=== PATIENT | male | born 1960 ===

== ENCOUNTER → 2020-06-25 15:24 | Outpatient (BNVA) | payer OTHER, SELFPAY | PROVIDERS: PCP Internal Medicine; Visit Provider Surgery | DX: Z76.89 Persons encountering health services in other specified circumstances (principal) ==

== ENCOUNTER 2021-01-13 11:22 | Emergency (ER) | payer OTHER, SELFPAY ==
--- NOTE | 2021-01-13 | ECG_ITS ---
Test Reason : AFIB Blood Pressure : / mmHG Vent. Rate : 153 BPM Atrial Rate : 153 BPM P-R Int : 000 ms QRS Dur : 072 ms QT Int : 288 ms P-R-T Axes : 000 -04 008 degrees QTc Int : 459 ms Atrial fibrillation with rapid ventricular response Abnormal ECG When compared with ECG of 09-NOV-2017 14:33, Rhythm change Referred By: Generic ED Physician Electronically Signed By:WENDY MENDEZ
--- NOTE | ~2021-01-13 | XR_ITS ---
EXAMINATION: XR CHEST CLINICAL INFORMATION: Dyspnea COMPARISON: None TECHNIQUE: Frontal view of the chest was obtained. FINDINGS: Cardiac silhouette is normal in size. The lungs are well aerated. There is no lobar consolidation. No pleural effusion or pneumothorax. No gross acute osseous abnormality. XR/XR chest 1V IMPRESSION: No acute pulmonary pathology.
[2021-01-13 11:29] VITALS: BP 106/82; PULSE 80; RESP 16; TEMP 36.6; O2SAT 96; BMI 26.4
--- NOTE | 2021-01-13 11:39 | ED_ITS ---
HPI - Chest Pain General Chief Complaint: Chest Pain Stated Complaint: CHEST PAIN Time Seen by Provider: 01/13/21 11:39 Source: patient Mode of arrival: ambulatory Limitations: no limitations History of Present Illness MD complaint: chest discomfort and other (dyspnea, palpitations) Pertinent past history: other (brother has ?afib) Onset (ago): day(s) (last night) Timing of current episode: constant Prior episodes: No Onset: during rest Pain location: substernal Pain radiation: none Severity: mild Quality: dull Relieving factors: nothing Exacerbating factors: nothing Context: other (did not drink ETOH this weekend, he did work on his house) Associated symptoms: dyspnea and palpitations Treatment prior to arrival: none Related Data Home Medications Medication Instructions Recorded Confirmed No Known Home Meds 06/12/20 06/25/20 Allergies Allergy/AdvReac Type Severity Reaction Status Date / Time penicillin G Allergy Unknown hives Verified 06/25/20 15:41 Penicillins [PCN] Allergy Unknown HIVES Verified 06/25/20 15:41 Review of Systems Review of Systems: Constitutional : No Fever, No Chills ENT/Mouth : No sore throat, No Rhinorrhea, No Swallowing Difficulty Eyes: No Eye Pain, No Swelling, No Redness Cardiovascular : pos Chest Pain, positive SOB, No Orthopnea, no Edema, pos palpitations Respiratory : No Cough, No Sputum, No Wheezing, positive dyspnea Gastrointestinal : No Nausea, No Vomiting, No Diarrhea, No abdominal Pain, No Hematochezia, No Melena Genitourinary : No Dysuria, No Urinary Frequency, No Hematuria Musculoskeletal : No joint pain, No Myalgias Skin : No Skin Lesions, No rash Neuro : No Weakness, No Numbness, No Dizziness, No Headache Psych : No Anxiety/Panic, No Depression Heme/Lymph: No Bruising, No Lymphadenopathy Endocrine : No Polyuria, No Polydipsia All other systems reviewed and are negative [facility] Past Medical History Attestation statement: The following information was validated with the patient. Medical History Annual physical exam Hernia Surgical History S/P appendectomy Family History Family History Father No problems noted. Mother No problems noted. 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 Oriented X3. No acute distress. Eyes: Pupils equal, round and reactive to light. ENT: Pharynx normal. Neck: Normal inspection. Neck supple. CVS: tachycardic and irregular heart rate and rhythm. Pulses normal. Respiratory: No respiratory distress. Breath sounds normal. Abdomen: Soft and nontender. Skin: Skin warm and dry. Normal skin color. Normal skin turgor. Extremities: No lower extremity edema. No calf ttp Neuro: Oriented X 3. No motor deficit. No sensory deficit. Course Course Course Narrative: converted to NSR - chadsvasc2 score is 0 at this time would start on aspirin currently his BP is on the lower end HR in 60s NSR patient has been in NSR post one dose of IV diilt, did walk around ED asymptomatic remains in NSR his HR is in 60s and BP lower 100s will hold off any bb or ccb at this time he has 0 chadsvasc score - will instruct him to use aspirin and follow up with cardiology the patient's brother also has afib after calling him and confirming, bnp elevated due to afib and not CHF MDM - Chest Pain MDM Narrative Medical decision making narrative: 60 yo male with no sig PMH though does not go to the doctor comes in with c/o feeling short of breath, palpitations and chest discomfort since last night - tele monitor shows afib with RVR, at this time labs, troponin, ddimer, CXR, IV dilt for rate control, dispo per results and if the patient converts as he has only been in afib for the past 12 hours Lab Data Result diagrams: 01/13/21 12:00 01/13/21 12:00 Labs: Lab Results 01/13/21 01/13/21 01/13/21 Range/Units 12:00 12:00 12:00 WBC 8.3 (4.8-10.8) X10*3/uL RBC 5.87 H (4.60-5.80) X10*6/uL Hgb 16.4 (14.0-18.0) g/dl Hct 49.2 (42-52) % MCV 83.8 (80-98) fL MCH 27.9 (27.0-33.0) pg MCHC 33.3 (31.0-36.0) g/dl RDW 12.7 (11.0-16.0) % Plt Count 221 (160-400) X10*3/uL MPV 11.6 (9.4-12.4) fL Immature Gran % (Auto) 0.6 H (0.0-0.4) % Neut % (Auto) 67.1 (45-73) % Lymph % (Auto) 18.8 L (20-40) % Hendricks % (Auto) 8.1 (2-11) % Eos % (Auto) 4.9 H (0-4) % Baso % (Auto) 0.5 (0-2) % Lymph # (Auto) 1.6 (1.2-4.9) X10*3/uL Hendricks # (Auto) 0.7 (0.1-1.2) X10*3/uL Eos # (Auto) 0.4 (0.0-0.4) X10*3/uL Baso # (Auto) 0.0 (0.0-0.2) X10*3/uL Abs Immat Gran (auto) 0.05 H (0.00-0.03) X10*3/uL Absolute Neuts (auto) 5.6 (2.0-8.3) X10*3/uL Absolute Nucleated RBC 0.000 (0.0-0.012) X10*3/uL Nucleated RBC % (auto) 0.0 (0.0-0.2) /100WBC PT 11.7 (9.9-13.0) SEC INR 1.0 (0.9-1.1) APTT 36.5 (24.1-38.0) SEC D-Dimer < 200 NG/ML Sodium 140 (135-145) mmol/L Potassium 4.3 (3.3-5.1) mmol/L Chloride 108 (96-108) mmol/L Carbon Dioxide 21 L (22-29) mmol/L Anion Gap 15 (12-20) BUN 15 (9-16) mg/dL Creatinine 0.86 (0.5-1.4) mg/dL Estim Creat Clear Calc 99.7 Estimated GFR > 60 Random Glucose 82 (60-115) mg/dL Calcium 9.2 (8.4-10.2) mg/dL Magnesium 2.0 (1.6-2.6) mg/dL Total Bilirubin 0.9 (0.0-1.0) mg/dL Direct Bilirubin 0.3 (0.0-0.5) mg/dL AST 20 (5-37) U/L ALT 20 (0-40) U/L Alkaline Phosphatase 83 (39-117) U/L Troponin I High Sens (<3.5-35.0) ng/L B-Natriuretic Peptide (<100) pg/mL Total Protein 6.4 L (6.5-8.0) g/dL Albumin 4.0 (3.5-5.0) g/dL Lipase 16 (8-78) U/L TSH (0.32-4.0) uIU/mL Ethyl Alcohol mg/dL 01/13/21 01/13/21 01/13/21 Range/Units 12:00 12:00 12:00 WBC (4.8-10.8) X10*3/uL RBC (4.60-5.80) X10*6/uL Hgb (14.0-18.0) g/dl Hct (42-52) % MCV (80-98) fL MCH (27.0-33.0) pg MCHC (31.0-36.0) g/dl RDW (11.0-16.0) % Plt Count (160-400) X10*3/uL MPV (9.4-12.4) fL Immature Gran % (Auto) (0.0-0.4) % Neut % (Auto) (45-73) % Lymph % (Auto) (20-40) % Hendricks % (Auto) (2-11) % Eos % (Auto) (0-4) % Baso % (Auto) (0-2) % Lymph # (Auto) (1.2-4.9) X10*3/uL Hendricks # (Auto) (0.1-1.2) X10*3/uL Eos # (Auto) (0.0-0.4) X10*3/uL Baso # (Auto) (0.0-0.2) X10*3/uL Abs Immat Gran (auto) (0.00-0.03) X10*3/uL Absolute Neuts (auto) (2.0-8.3) X10*3/uL Absolute Nucleated RBC (0.0-0.012) X10*3/uL Nucleated RBC % (auto) (0.0-0.2) /100WBC PT (9.9-13.0) SEC INR (0.9-1.1) APTT (24.1-38.0) SEC D-Dimer NG/ML Sodium (135-145) mmol/L Potassium (3.3-5.1) mmol/L Chloride (96-108) mmol/L Carbon Dioxide (22-29) mmol/L Anion Gap (12-20) BUN (9-16) mg/dL Creatinine (0.5-1.4) mg/dL Estim Creat Clear Calc Estimated GFR Random Glucose (60-115) mg/dL Calcium (8.4-10.2) mg/dL Magnesium (1.6-2.6) mg/dL Total Bilirubin (0.0-1.0) mg/dL Direct Bilirubin (0.0-0.5) mg/dL AST (5-37) U/L ALT (0-40) U/L Alkaline Phosphatase (39-117) U/L Troponin I High Sens 6.6 (<3.5-35.0) ng/L B-Natriuretic Peptide 350 H (<100) pg/mL Total Protein (6.5-8.0) g/dL Albumin (3.5-5.0) g/dL Lipase (8-78) U/L TSH 2.31 (0.32-4.0) uIU/mL Ethyl Alcohol < 10 mg/dL ECG Data ECG #1: Attestation: I personally reviewed and interpreted this ECG as follows: ECG interpretation date: 01/13/21 ECG interpretation time: 11:52 Interpretation: Rate: 150s Rhythm: afib with RVR [place]: normal Normal QRS complex. ST T wave : no BALDO, non specific qTC: normal prior studies: change from prior The study has been interpreted contemporaneously by me. EKG#2 Rate: 66 Rhythm: NSR [place]: left Normal P waves (inverted) Normal KRISTINE. Normal QRS complex. poor R wave progression ST T wave : normal no BALDO qTC: normal prior studies: no acute ischemia The study has been interpreted contemporaneously by me. . Discharge Plan Discharge Clinical Impression: Atrial fibrillation with rapid ventricular response Patient Disposition: Home, Self-Care Instructions: A-fib (Atrial Fibrillation) (ED) Additional Instructions: return to ED for any worsening symptoms or concerns TAKE BABY ASPIRIN 81MG DAILY Prescriptions: No Action No Known Home Meds RF: 0 Referrals: Pam Santos MD [Primary Care Provider] - 2 days Enrike Oconnell MD [Physician] - 1 week Stand Alone Forms: Work/School Release Interventions: ED Discharge Assessment Last Done: 01/13/21 14:25 Discharge Date/Time: 01/13/21 14:26
[2021-01-13 12:00] VITALS: PULSE 144
[2021-01-13 12:04] VITALS: BP 225/167; PULSE 144
[2021-01-13] MEDS: dilTIAZem HCL 50 MG/10 ML VIAL 10 MG IVPUSH (12:04)
[2021-01-13 12:07] VITALS: BP 180/88; PULSE 96; RESP 15; O2SAT 94
[2021-01-13 12:09] LABS: MANUAL DIFF FLAG NO
[2021-01-13 12:10] LABS: Basophils Percent Auto 0.5 % (0-2); Eosinophils Absolute Auto 0.4 X10*3/uL (0.0-0.4); Eosinophils Percent Auto 4.9 % (0-4); Hematocrit 49.2 % (42-52); Hemoglobin 16.4 g/dl (14.0-18.0); Imm Gran Abs Auto 0.05 X10*3/uL (0.00-0.03); Imm Gran Pct Auto 0.6 % (0.0-0.4); Lymphocytes Absolute Auto 1.6 X10*3/uL (1.2-4.9); Lymphocytes Percent Auto 18.8 % (20-40); Mean Corpuscular HGB Conc 33.3 g/dl (31.0-36.0); Mean Corpuscular Hemoglobin 27.9 pg (27.0-33.0); Mean Corpuscular Volume 83.8 fL (80-98); Mean Platelet Volume 11.6 fL (9.4-12.4); Monocytes Absolute Auto 0.7 X10*3/uL (0.1-1.2); Monocytes Percent Auto 8.1 % (2-11); Neutrophils Absolute Auto 5.6 X10*3/uL (2.0-8.3); Neutrophils Percent Auto 67.1 % (45-73); Platelet Count 221 X10*3/uL (160-400); Red Blood Count 5.87 X10*6/uL (4.60-5.80); Red Cell Distribution Width 12.7 % (11.0-16.0); White Blood Count 8.3 X10*3/uL (4.8-10.8)
[2021-01-13 12:17] LABS: Prothrombin Time 11.7 SEC (9.9-13.0)
[2021-01-13 12:20] LABS: Partial Thromboplastin Time 36.5 SEC (24.1-38.0)
[2021-01-13 12:21] LABS: D Dimer < 200 NG/ML
[2021-01-13] MEDS: 0.9 % Sodium Chloride 500 ML IV (12:27)
--- NOTE | 2021-01-13 12:27 | PC.NURSE ---
Pt given iV cardizem. HR from 130s to 90s pt reports feeling much better . BP stable and trending down at this time.
[2021-01-13 12:30] LABS: Ethanol < 10 mg/dL
[2021-01-13 12:35] LABS: Alanine Aminotransferase 20 U/L (0-40); Alkaline Phosphatase 83 U/L (39-117); Anion Gap 15 (12-20); Aspartate Amino Transferase 20 U/L (5-37); Bilirubin Direct 0.3 mg/dL (0.0-0.5); Bilirubin Total 0.9 mg/dL (0.0-1.0); Blood Urea Nitrogen 15 mg/dL (9-16); Calcium 9.2 mg/dL (8.4-10.2); Carbon Dioxide 21 mmol/L (22-29); Chloride 108 mmol/L (96-108); Creatinine Clr Calc Pharmacy 99.7; Estimated Glomerular Filt Rate > 60; Glucose Random 82 mg/dL (60-115); Lipase 16 U/L (8-78); Potassium 4.3 mmol/L (3.3-5.1); Sodium 140 mmol/L (135-145); Total Protein 6.4 g/dL (6.5-8.0)
--- NOTE | 2021-01-13 12:37 | PC.NURSE ---
Pt removed reading glasses for exam as he states that they are to be used for up close reading only. He states that his right eye is slightly more blurry than normal at this time.
[2021-01-13 12:38] LABS: B Type Natriuretic Peptide 350 pg/mL (<100); Troponin-I High Sensitivity 6.6 ng/L (<3.5-35.0)
--- NOTE | 2021-01-13 12:53 | ECG_ITS ---
Test Reason : AFIB Blood Pressure : / mmHG Vent. Rate : 066 BPM Atrial Rate : 066 BPM P-R Int : 172 ms QRS Dur : 082 ms QT Int : 374 ms P-R-T Axes : 000 -27 007 degrees QTc Int : 392 ms Normal sinus rhythm Possible Inferior infarct , age undetermined Abnormal ECG When compared with ECG of 13-JAN-2021 11:47, Sinus rhythm has replaced Atrial fibrillation Vent. rate has decreased BY 87 BPM Borderline criteria for Inferior infarct are now Present Referred By: Stephy Gonzalez Electronically Signed By:WENDY MENDEZ
[2021-01-13 12:55] LABS: TSH reflex Free T4 2.31 uIU/mL (0.32-4.0)
[2021-01-13 13:08] VITALS: PULSE 66
--- NOTE | 2021-01-13 13:08 | PC.NURSE ---
Rhythm change noted, EKG obtained and MD notified.
--- NOTE | 2021-01-13 13:53 | PC.NURSE ---
Pt ambulated around entire ED. He remains in SR at this time. aware.
== END 2021-01-13 14:26 | disposition home or self-care (01) ==
PROVIDERS: Emergency Provider Emergency Medicine; PCP Internal Medicine
DX: I48.91 Unspecified atrial fibrillation (principal)
CPT/HCPCS: 36415; 71045; 80048; 80076; 82077; 83690; 83735; 83880; 84443; 84484; 85025; 85379; 85610; 85730; 93005; 96361; 96374; 99284

== ENCOUNTER → 2021-03-07 13:01 | Outpatient (REF) | payer OTHER, SELFPAY ==
--- NOTE | 2021-03-07 13:03 | CA_ITS ---
Transthoracic Echocardiogram Patient (Last, First, Middle): Benoit Dailey J Gender: Male Date of : 1960 Age: 60 Procedure Date: 03/07/2021 Procedure Type: Transthoracic Echocardiogram Location: OP Height: 180.34 cm Weight: 83.92 kg BSA: 2.04 m2 Heart Rate: bpm BP: 122 / 70 mmHg Alarm Installation Technician: Referring MD: Pam Santos MD Symptoms: I48.91 - Unspecified atrial fibrillation Study Quality: Good ECG Rhythm: Sinus Conclusions: - Normal left ventricular size and systolic function. - Normal right ventricular cavity size and systolic function. - The left atrium is moderately dilated. - There is mild dilatation of the ascending aorta. Findings Left Ventricle Normal left ventricular size and systolic function. There is mildly increased left ventricular wall thickness. The visually estimated ejection fraction is between 55-60%. There is no evidence of regional wall motion abnormalities. Diastolic function is normal for age. Right Ventricle Normal right ventricular cavity size and systolic function. Atria The left atrium is moderately dilated. Aortic Valve Normal aortic valve structure and function. There is no aortic valve stenosis. There is no aortic valve regurgitation. Mitral Valve Normal mitral valve structure and function. There is no mitral valve regurgitation. There is no mitral valve stenosis. Pulmonic Valve Normal pulmonic valve structure and function. There is trace pulmonic valve regurgitation. Tricuspid Valve Normal tricuspid valve structure. There is trace tricuspid valve regurgitation. Normal right atrial pressure. There is no evidence of pulmonary hypertension. Great Vessels There is mild dilatation of the ascending aorta. The visualized portions of the pulmonary artery and branches are normal. Venous The inferior vena cava is normal in size and collapses greater than 50% with inspiration. Pericardium/Pleural There is no evidence of pericardial effusion. Prior Study Comparison No prior study available for comparison. Measurements 2D Linear Measurements IVSd: 1.15 0.6-0.9/0.6-1.0 cm LVIDd: 4.56 3.9-5.3/4.2-5.9 cm LVIDd Index: 2.24 2.4-3.2/2.2-3.1 cm/m2 LVIDs: 2.79 2.0-3.6 cm LVPWd: 1.05 0.7-1.1 cm Ao Root: 3.40 2.1-3.5 cm LA Diam: 4.50 2.7-3.8/3.0-4.0 cm LAIDs Index: 2.21 1.5-2.3 cm/m2 LV Mass: 222.66 67-162/88-224 g LV Mass Index: 109.15 43-95/49-115 g/m2 LVOT Diam: 2.40 3.0+(-)1.3 cm Mitral Valve MV Pk E: 0.87 MV PK A: 0.72 MV Decel Time: 243.00 E/A: 1.20 E'Lateral: 13.10 E'Medial: 8.92 E/E' Med: 9.80 E/E' Lat: 6.60 PHT: 71.00 MVA PHT: 3.10 Decel [place]: 3.58 Aortic Valve AoV Pk [place]: 1.76 AoV Mn [place]: 1.05 AoV VTI: 0.37 AoV Pk Grad: 12.00 Aov Mn Grad: 5.00 NEISHA Cont.VTI: 3.72 LVOT LVOT Pk [place]: 1.52 LVOT Mn [place]: 1.09 LVOT VTI: 0.30 LVOT Pk Grad: 9.00 LVOT Mn Grad: 5.00 LVOT Diam: 2.40 LVOT Area: 4.52 Diastolic Function MV Pk E: 0.87 MV Pk A: 0.72 E/A: 1.20 E'Medial: 8.92 E/E' Med: 9.80 E' Laterial: 13.10 E/E' Lat: 6.60 Tricuspid Valve TR Pk [place]: 2.05 TR Pk Grad: 17.00 RA Press: 3.00 RVSP: 20.00 Great Vessels Aorta Ao Root-2D: 3.40 2.0-3.7 cm Ao Asc: 4.10 2.1-3.4 cm Pulmonary Valve PV Pk [place]: 1.29 Peak PV Grad: 7.00 Updated in Other Vendor System with Status of Final Uriel Landaverde MD electronically signed on 03/08/2021 5:35:05 PM with status of Final
--- NOTE | 2021-03-07 13:03 | ECG_ITS ---
Hook-up date: 2021-03-07 13:55:00 Duration: 47:59:00 Test Indications: AFIB Medications: 119271 QRS complexes 30 Ventricular ectopics which represent <1 % of total QRS comp. 704 Supraventricular ectopics which represent <1 % of total QRS comp. * Paced QRS complexs which represent % of total QRS comp. VENTRICULAR ECTOPY 26 Isolated 0 Bigeminal Cycles 0 Couplets 1 Runs 4 Beats in Runs 4 Beats LONGEST at 187 BPM at 03:58:51 2021-03-09 4 Beats FASTEST at 187 BPM at 03:58:51 2021-03-09 SUPRAVENTRICULAR ECTOPY 601 Isolated 36 Couplets 8 Runs 31 Beats in Runs 6 Beats LONGEST at 150 BPM at 21:22:36 2021-03-07 3 Beats FASTEST at 154 BPM at 04:35:06 2021-03-09 HEART RATES 39 MIN at 05:11:21 2021-03-09 68 AVG 119 MAX at 14:55:01 2021-03-08 LONGEST RR 1.8320 secs at 05:21:35 2021-03-08 S-T LEVELS Channel 1 - 128 mm at 13:55:00 2021-03-07 - 128 mm at 13:55:00 2021-03-07 Channel 2 - 128 mm at 13:55:00 2021-03-07 - 128 mm at 13:55:00 2021-03-07 Channel 3 - 128 mm at 03:31:41 -- - 128 mm at 03:31:41 Underlying rhythm is sinus; Average ventricular rate 68/min; range 39-119/min; Rare PACs with few short runs, longest 6 beats; Rare PVCs; Patient did not report any symptoms in the diary Referred By: Pam Santos Overread By: WENDY MENDEZ
== END ==
LOC: HO.CARD 13:01
PROVIDERS: Visit Provider Internal Medicine
DX: I48.91 Unspecified atrial fibrillation (principal)
CPT/HCPCS: 93225; 93226; 93306

== ENCOUNTER → 2021-03-13 15:25 | Outpatient (BNVA) | payer OTHER, SELFPAY | PROVIDERS: PCP Internal Medicine; Referring Provider Internal Medicine; Visit Provider Internal Medicine Cardiovascular Disease | DX: I48.0 Paroxysmal atrial fibrillation (principal) | CPT/HCPCS: 93005 ==

== ENCOUNTER → 2021-03-19 16:00 | Outpatient (BNVA) | payer OTHER, SELFPAY | PROVIDERS: PCP Internal Medicine; Referring Provider Internal Medicine; Visit Provider Surgery ==

== ENCOUNTER 2021-05-05 11:49 | Outpatient (REF) | payer OTHER, SELFPAY ==
[2021-05-05 11:54] VITALS: BMI 26.2
[2021-05-05 11:55] VITALS: BP 145/62; PULSE 73; RESP 16; TEMP 36.8; O2SAT 98
[2021-05-05 12:33] VITALS: BP 140/84; PULSE 73; RESP 16; O2SAT 97
--- NOTE | 2021-05-07 10:43 | P.OP_ITS ---
Operative Note Operative Note Date of Service: 05/05/21 Narrative: Preop diagnosis: Subcutaneous mass on the back Postop diagnosis: Epidermal inclusion cyst, on the back Procedure: Excision of epidermal inclusion cyst from the back under local anesthesia Surgeon: Bebeto Vizcaino MD The patient is a 61-year-old male with a large cystic mass on the back measuring about 3.8 cm. He understood the technique of excision under local anesthesia. He was aware of the risks, benefits, and alternatives. He was brought to the minor procedure room and placed in prone position. The area of the cystic induration on the upper back was prepped and draped. Lidocaine 1% was used for local anesthesia. I made an elliptical incision in the skin overlying this mass using blade 15. This carried down through the full- thickness of the skin and subcutaneous fat. I then proceeded to continue to sharply dissect the subcutaneous fat around this cyst. This appeared to have a capsule and I included the entire capsule with excision. I used the Metzenbaum scissors as well periodically until the entire cystic induration was completely excised and sent as specimen. I closed the incision with full-thickness nylon 2-0 interrupted sutures. Dressings were applied The patient tolerated the procedure well. There were no complications noted. He was given wound care instructions. I will see him in the office in 2 weeks to remove the sutures.
== END 2021-05-05 11:50 | disposition home or self-care (01) ==
LOC: HO.MS 11:49
PROVIDERS: PCP Internal Medicine; Visit Provider Surgery
PROC: (CPT 11404; principal; 2021-05-05 12:00)
DX: L72.0 Epidermal cyst (principal)
CPT/HCPCS: 11404; 88304

== ENCOUNTER → 2021-05-19 14:54 | Outpatient (BNVA) | payer OTHER, SELFPAY | PROVIDERS: PCP Internal Medicine; Referring Provider Internal Medicine; Visit Provider Surgery ==

== ENCOUNTER → 2021-10-02 15:20 | Outpatient (BNVA) | payer OTHER, SELFPAY | PROVIDERS: PCP Internal Medicine; Referring Provider Internal Medicine; Visit Provider Internal Medicine Cardiovascular Disease | DX: I48.0 Paroxysmal atrial fibrillation (principal); R06.00 Dyspnea, unspecified | CPT/HCPCS: 93005 ==

== ENCOUNTER → 2021-11-03 08:48 | Outpatient (REF) | payer OTHER, SELFPAY ==
--- NOTE | 2021-11-03 08:51 | CA_ITS ---
Acquisition Time: 2021-11-03 09:17:46 Total Exercise Time: 00:10:10 Test Indications: Abnormal ECG Medications: NONE Protocol: TAQUERIA Max HR: 141 BPM 87% of Pred: 161 BPM Max BP: 142/082 mmHG Max Work Load: 12.0 METS Exercise stress test with exercise 10 min 10 sec of Taqueria protocol, achieving 86% MPHR, 12 METs, without anginal symptoms, with isolated PACs and one 3 beat NSVT at start of stage 4, with normotensive response to exercise, without EKG changes meeting criteria for ischemia, in early recovery some tracings show borderline ST change in leads III- nonspecific. Test reviewed with Dr Vasquez Referred By: Uriel Landaverde Overread By: MARIAJOSE MILLER
== END ==
LOC: HO.CARD 08:48
PROVIDERS: PCP Internal Medicine; Visit Provider Internal Medicine Cardiovascular Disease
DX: R06.00 Dyspnea, unspecified (principal)
CPT/HCPCS: 93017

== ENCOUNTER → 2021-12-31 14:16 | Outpatient (BNVA) | payer OTHER, SELFPAY | PROVIDERS: PCP Internal Medicine; Referring Provider Internal Medicine; Visit Provider Nurse Practitioner Family | DX: I48.0 Paroxysmal atrial fibrillation (principal) | CPT/HCPCS: 93005 ==

== ENCOUNTER → 2022-10-19 13:37 | Outpatient (BNVA) | payer OTHER, SELFPAY | PROVIDERS: PCP Internal Medicine; Referring Provider Internal Medicine; Visit Provider Internal Medicine Cardiovascular Disease | DX: I48.0 Paroxysmal atrial fibrillation (principal); R06.00 Dyspnea, unspecified; K40.90 Unilateral inguinal hernia, without obstruction or gangrene, not specified as recurrent | CPT/HCPCS: 93005 ==

== ENCOUNTER 2022-12-04 06:49 | Day surgery (SDC) | payer OTHER, SELFPAY ==
[2022-12-01 14:56] VITALS: BMI 28.0
--- NOTE | 2022-12-03 09:56 | HO.ANESPROP2 ---
HPI - Anesthesia Eval Consult details Narrative: 62yo M for Left Hernia Repair Inguinalw/mesh Cardiac optimized Afib - No anticoag, prn flecinide PMFSH Active Problems Active Problems: All Active Problems (Updated 10/19/22 @ 16:17 by Bebeto Vizcaino MD) Left inguinal hernia (Acute) WYMAN (dyspnea on exertion) (Acute) Colonoscopy refused (Acute) Cataract (Acute) Subcutaneous mass of back (Acute) Afib (Acute) Annual physical exam (Acute) Past Medical History Medical History Afib Annual physical exam Subcutaneous mass of back Family History Family History Father No problems noted. Mother No problems noted. Surgical History Surgical History History of cataract surgery History of excision of mass (~2020) History of left inguinal hernia repair (~12/04/22) S/P appendectomy Social History Social History Household Members: Spouse Housing: House Are you a primary body care manager to a significant other at home: No Do you presently have visiting nurse or other home services: No Alcohol intake: current Alcohol intake frequency: a few times a month Alcohol type: beer Patient Tobacco Use Status: Never used Tobacco e-Cigarette/Vaping Use: Never Used Second Hand Smoke Exposure: No Current occupational status: employed 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 Max HR: 141 BPM? 87% of? Pred: 161 BPM Max BP: 142/082 mmHG Max Work Load: 12.0 METS ? Exercise stress test with exercise 10 min 10 sec of [place]qu[place] protocol, achieving ?86% MPHR, 12 METs, without anginal symptoms, with isolated PACs and one 3 beat ?NSVT at start of stage 4, with normotensive response to exercise, without EKG ?changes meeting criteria for ischemia, in early recovery some tracings show ?borderline ST change in leads III- nonspecific. Test reviewed with Dr Ross ECHO 02/2021 Conclusions: - Normal left ventricular size and systolic function.? - Normal right ventricular cavity size and systolic function.? ? - The left atrium is moderately dilated. ? - There is mild dilatation of the ascending aorta.? Assessment and Plan Assessment Anesthesia Assessment: Chart Reviewed
[2022-12-04] VITALS (11 sets, daily range): BP systolic 97–139; BP diastolic 63–85; PULSE 49–63; RESP 16–18; TEMP 36.1–36.4; O2SAT 95–96; BMI 28.0
--- NOTE | 2022-12-04 07:25 | P.CONAN_ITS ---
[facility] Active Problems Active Problems: All Active Problems (Updated 10/19/22 @ 16:17 by Bebeto Vizcaino MD) Left inguinal hernia (Acute) WYMAN (dyspnea on exertion) (Acute) Colonoscopy refused (Acute) Cataract (Acute) Subcutaneous mass of back (Acute) Afib (Acute) Annual physical exam (Acute) Past Medical History Medical History Afib Annual physical exam Subcutaneous mass of back Functional capacity: independent ambulation Family History Family History Father No problems noted. Mother No problems noted. 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 Cognitive needs: No Hearing needs: No Vision needs: Yes Meds Allergies Allergy/AdvReac Type Severity Reaction Status Date / Time Penicillins [PCN] Allergy Unknown HIVES Verified 10/19/22 16:02 Active Medications: Current Medications Lactated Ringer's (Lr) 1,000 mls @ 100 mls/hr IVCONT .Q10H KODI Cefazolin Sodium/Dextrose (Ancef) 2 gm in 50 mls @ 100 mls/hr IV PREOP ONE Stop: 12/04/22 07:46 Home Medications Medication Instructions Recorded Confirmed Last Taken Type No Known Home Meds 07/09/22 12/01/22 Unknown History Exam Exam Date and Time: December 04, 2022 0725 Height,Weight and Vital Signs: Height 5 ft 11 in Weight 91.172 kg Airway Mallampati Class: III TM Dist: >3cm Neck ROM: Full Heart: RRR Lungs: CTA Assessment and Plan Final Anesthetic Review ASA Class: II Final Preanesthetic Review: Meds/Allgs Chart Reviewed, Consent Obtained/Reviewed and Anes Risks/Benef Reviewed Patient Risk: Intermediate Procedure Risk: Low Anesthetic Plan Anesthetic Plan: GA Disposition: Standard PACU
--- NOTE | 2022-12-04 07:47 | HO.ANESPROP2 ---
[facility] Active Problems Active Problems: All Active Problems (Updated 10/19/22 @ 16:17 by Bebeto Vizcaino MD) Left inguinal hernia (Acute) WYMAN (dyspnea on exertion) (Acute) Colonoscopy refused (Acute) Cataract (Acute) Subcutaneous mass of back (Acute) Afib (Acute) Annual physical exam (Acute) Past Medical History Medical History Afib Annual physical exam Subcutaneous mass of back Functional capacity: independent ambulation Family History Family History Father No problems noted. Mother No problems noted. Surgical History Surgical History History of cataract surgery History of excision of mass (~2020) S/P appendectomy History of Problems with Anesthesia: No Social History Social History Household Members: Spouse Housing: House Are you a primary career specialist to a significant other at home: No Do you presently have visiting nurse or other home services: No Alcohol intake: current Alcohol intake frequency: a few times a month Alcohol type: beer Patient Tobacco Use Status: Never used Tobacco e-Cigarette/Vaping Use: Never Used Second Hand Smoke Exposure: No Current occupational status: employed 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 Cognitive needs: No Hearing needs: No Vision needs: Yes Meds Allergies Allergy/AdvReac Type Severity Reaction Status Date / Time Penicillins [PCN] Allergy Unknown HIVES Verified 10/19/22 16:02 Active Medications: Current Medications Lactated Ringer's (Lr) 1,000 mls @ 100 mls/hr IVCONT .Q10H [facility] Home Medications Medication Instructions Recorded Confirmed Last Taken Type No Known Home Meds 07/09/22 12/01/22 Unknown History Exam Exam Date and Time: December 04, 2022 0747 Height,Weight and Vital Signs: Height 5 ft 11 in Weight 91.1 kg Last Vital Signs Temp 97.1 F 12/04/22 07:37 Pulse 63 12/04/22 07:37 Resp 18 12/04/22 07:37 BP 139/79 12/04/22 07:37 Pulse Ox 95 12/04/22 07:37 O2 Del Method Room Air 12/04/22 07:37 Airway Mallampati Class: III TM Dist: >3cm Neck ROM: Full Heart: RRR Lungs: CTA Assessment and Plan Final Anesthetic Review History of Problems with Anesthesia: No ASA Class: II Final Preanesthetic Review: Meds/Allgs Chart Reviewed, Consent Obtained/Reviewed and Anes Risks/Benef Reviewed Patient Risk: Intermediate Procedure Risk: Low Anesthetic Plan Anesthetic Plan: GA Disposition: Standard PACU
--- NOTE | 2022-12-04 08:10 | MHC.SHP ---
Pre-Procedural Eval Section A Date of Service: 12/04/22 Section B Chief Complaint: Unilateral inguinal hernia, without obstruction Details of Present Illness: Has a mass on the left groin consistent with a hernia Relevant Family History (Specify if Yes): No Relevant Social History: None Present Medications: see Short Stay Collaborative assessment Medical History: Significant History ( atrial fibrill) History of Previous Operations: Relevant previous surgery/procedure and date(s) Allergies: Allergies Allergy/AdvReac Type Severity Reaction Status Date / Time Penicillins [PCN] Allergy Unknown HIVES Verified 10/19/22 16:02 Review of Systems Sugical H&P ROS: Negative: Constitution, Cardiovascular, Respiratory, Neurological, Psychiatric, Hem-Onc, Allergic/Immunologic, Gastrointestinal, Genitourinary, Musculoskeletal, Integumentary, Endocrine and Eyes/Ears/Nose/Throat Exam Surgical H&P Exam: Normal: HEENT, Normal: Heart, Normal: Lungs, Normal: Extremities, Normal: Skin and Normal: Neurological and Significant Findings: Abdomen ( left inguinal hernia, large, partially reducible) Plan Diagnosis/Plan: Unchanged I have reviewed the history and physical and performed a pertinent physical examination on my patient. No changes have occurred unless specified. Time Spent With Patient Time: Total time managing care of this patient today ____ minutes.
--- NOTE | 2022-12-04 09:29 | P.OP_ITS ---
Operative Note Operative Note Date of Service: 12/04/22 Narrative: Preop diagnosis: large left inguinal hernia, chronically incarcerated Postop diagnosis: large left inguinal hernia, chronically incarcerated, indirect Procedure: Repair of a large chronically incarcerated left inguinal hernia, with mesh Surgeon: Bebeto Vizcaino MD computer lab assistant: KORIN Shields the patient is a 62-year-old male, with note of a large left inguinal hernia. This appears to be chronically incarcerated. In view of discomfort, he wanted to proceed with repair. He understood the technique of the procedure. He was aware of the risks, benefits, and alternatives. Brought to the operating room. He was placed supine under general anesthesia via laryngeal mask airway. The left groin was prepped and draped in the usual sterile fashion. A surgical time-out was done. The patient received cefazolin 2 g IV preoperatively. I made a generous incision on the skin overlying this hernia along an imaginary line from the left anterior superior except spine to the pubic ramus using blade 15. This carried down with electrocautery through the full-thickness of the skin subcutaneous fat. Is is noted that patient has a thick amount of subcutaneous fat as well. The then encountered a large hernia protruding through the external ring. I opened up the of the inguinal canal by make an incision on the external oblique min neurosis using a blade 15. And extending this inferomedially to connect with the external ring using an open tip pair of scissors. Status were applied on the divided edges of the aponeurosis. I then proceeded to do blood dissection of the spermatic cord and its contents using my index finger until I was able to pass Doni drain around this. This Doni drain was used for traction. I was able to identify the vas deferens and a combining vessels. There was note of a large lipoma very adherent to the spermatic cord. There was note of a very large the sac, which contained fat. Had to gently separate this from the rest of the cord contents. This was then reduced to a large internal ring. I used a large-sized block to reinforce the internal ring. This plug was secured with Prolene 2 sutures to shelving edge of the inguinal meant the, the internal oblique superiorly and medially using the inner leaves of the plug. I then used a he will mesh to reinforce the floor of the canal. The tails of the mesh was passed around the cord at the level of turn a week and secured together with Prolene 2 sutures. I secured the mesh to the floor of the canal and flattened this. This was secured to the shelving edge of the inguinal and laterally, and the anterior neural oblique superiorly medially, as well as the pubic ramus inferomedially using the inner leaves of using Prolene 2 sutures. We observed for hemostasis. Once hemostasis was confirmed, we irrigated. The vas deferens and the accompanying vessels were protected throughout the procedure I then closed the external oblique aponeurosis using a continuous running Polysorb 2-0 stitch to re-create the external ring We then reapposed the thick subcutaneous layer with dex Polysorb 3-0 interrupted sutures. Skin closure was achieved with pollicis of 4-0 subcuticular running rodriguez tures. Area was infiltrated with Marcaine 0.5% for postop analgesia. Dressings were applied. The procedure was completed The patient tolerated procedure well. There were no immediate complications. Initial final counts of sponges and instruments were correct. Estimated blood loss was about 25 cc. The patient extubated without difficulty and transferred to the recovery room with stable vital signs.
[2022-12-04] MEDS: Acetaminophen 1,000 MG/100 ML PIGGYBACK 400 MG IV (10:11)
[2022-12-04] MEDS: fentaNYL citrate/PF 100 MCG/2 ML VIAL 25 MCG IVPUSH ×2 (10:13→10:40)
[2022-12-04] MEDS: oxyCODONE HCl Immed Release 5 MG TABLET PO (10:17)
--- NOTE | 2022-12-04 10:21 | HO.POSTANES ---
Post Anesthesia Evaluation Post Anesthesia Evaluation Date of Service: 12/04/22 Vital Signs: Vital Signs Temp Pulse Resp BP Pulse Ox O2 Del Method 12/04/22 09:50 51 16 123/73 95 Room Air 12/04/22 10:13 49 L 18 133/73 96 Room Air 12/04/22 10:13 18 12/04/22 09:58 50 16 127/74 95 Room Air 12/04/22 09:45 53 16 97/63 96 Room Air 12/04/22 09:43 97.6 F 61 16 118/67 95 Room Air 12/04/22 07:37 97.1 F 63 18 139/79 95 Room Air Anesthesia: General LMA Mental Status: Awake Pain Control: Satisfactory Nausea/Vomiting: None Hydration: Adequate Anesthesia-Related Issues: No Anes. Related Issues
== END 2022-12-04 11:50 | disposition home or self-care (01) ==
PROVIDERS: PCP Internal Medicine; Visit Provider Surgery
PROC: (CPT 49507; principal; 2022-12-04 08:30)
DX: K40.30 Unilateral inguinal hernia, with obstruction, without gangrene, not specified as recurrent (principal); D17.6 Benign lipomatous neoplasm of spermatic cord; I48.91 Unspecified atrial fibrillation; Z88.0 Allergy status to penicillin; Z90.49 Acquired absence of other specified parts of digestive tract
CPT/HCPCS: 49507; C1781; J0131; J0690; J1100; J1885; J2250; J2405; J2795; J3010

== ENCOUNTER → 2022-12-17 10:39 | Outpatient (BNVA) | payer OTHER, SELFPAY | PROVIDERS: PCP Internal Medicine; Visit Provider Surgery ==

== ENCOUNTER → 2023-01-11 09:51 | Outpatient (BNVA) | payer OTHER, SELFPAY | PROVIDERS: PCP Internal Medicine; Visit Provider Surgery ==

== ENCOUNTER 2023-03-22 08:43 | Emergency (ER) | payer OTHER, SELFPAY ==
[2023-03-22 08:45] VITALS: BP 110/59; PULSE 130; RESP 20; TEMP 36.8; O2SAT 98; BMI 27.9
--- NOTE | 2023-03-22 08:49 | ECG_ITS ---
Test Reason : afib Blood Pressure : / mmHG Vent. Rate : 139 BPM Atrial Rate : 000 BPM P-R Int : 000 ms QRS Dur : 080 ms QT Int : 276 ms P-R-T Axes : 000 -20 -20 degrees QTc Int : 419 ms Atrial fibrillation with rapid ventricular response Low voltage QRS Cannot rule out Anterior infarct , age undetermined Abnormal ECG When compared with ECG of 13-JAN-2021 12:53, Atrial fibrillation has replaced Sinus rhythm Vent. rate has increased BY 73 BPM Referred By: Generic ED Physician Electronically Signed By:GILMA ROMAN
[2023-03-22 09:11] LABS: MANUAL DIFF FLAG NO
--- NOTE | 2023-03-22 09:12 | ED_ITS ---
HPI - Arrhythmia/Palpitations General Chief Complaint: Arrhythmia/Palpitations Stated Complaint: afib Time Seen by Provider: 03/22/23 09:11 Source: patient, RN notes reviewed and old records reviewed Mode of arrival: ambulatory History of Present Illness HPI narrative: 63-year-old male with a past medical history of proximal AFib not on anticoagulation, presenting to the ED complaining of palpitations/feeling anxious since last night around 21:00. Denies currently taking any daily medications. Admits when last saw cardiology was taken off ASA, does not take rate control medications. Reports mild exertional dyspnea. Denies chest pain, SOB at rest, cough, pedal edema, history of clots, lightheadedness/dizziness complaint: palpitations Related Data Previous Rx's Medication Instructions Recorded metoprolol succinate 25 mg 25 mg PO DAILY 30 days #30 tabs 03/22/23 tablet,extended release 24 hr (Toprol XL) Allergies Allergy/AdvReac Type Severity Reaction Status Date / Time Penicillins [PCN] Allergy Unknown HIVES Verified 01/11/23 09:56 Review of Systems 2 Review of Systems: Constitutional: No Fever, No Chills, No Fatigue, No Malaise ENT/Mouth: No Hearing loss, No Ear Pain, No sore throat, No Rhinorrhea, No Swallowing Difficulty Eyes: No Eye Pain, No Swelling, No Redness, Cardiovascular: No Chest Pain, No SOB, +Dyspnea on Exertion, No Orthopnea, No Edema, No Palpitations Respiratory: No Cough, No Sputum, No Dyspnea Gastrointestinal: No Nausea, No Vomiting, No Diarrhea, No Constipation, No Abdominal pain Musculoskeletal: No joint pain, No Myalgias, No Joint Swelling Skin: No Skin Lesions, No rash Neuro: No Weakness, No Numbness, No Paresthesias, No Loss of Consciousness, No Dizziness, No Headache Psych: + Anxiety Yes all other systems are reviewed and are negative Constitutional: Constitutional: Reports as per HPI [facility] Past Medical History Attestation statement: The following information was validated with the patient. Source: old records reviewed Medical History Afib Annual physical exam Subcutaneous mass of back Surgical History History of cataract surgery History of excision of mass (~2020) History of left inguinal hernia repair (~12/04/22) S/P appendectomy Family History Family History Father No problems noted. Mother No problems noted. 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 Cognitive needs: No Hearing needs: No Vision needs: Yes Physical Exam 2 Vital Signs: Vital Signs: Last Vital Signs Temp 97.8 F 03/22/23 10:57 Pulse 70 03/22/23 15:19 Resp 17 03/22/23 15:19 BP 97/68 03/22/23 15:19 Pulse Ox 95 03/22/23 15:19 O2 Del Method Room Air 03/22/23 15:19 BMI result Body Mass Index 27.9 Const: General: cooperative, healthy appearing, no acute distress, alert and awake Orientation/consciousness: patient oriented x3 Limitations: no limitations HEENT: Head: Yes normal to inspection and Yes atraumatic Ears: hearing grossly normal bilaterally General nose exam: Normal external nose present Face and sinus: Yes normal facial exam Eyes: General: appearance normal, both eyes and all related structures EOM: EOMs intact bilaterally Neck: Neck: Yes normal visual inspection and Yes no meningeal signs Resp: Effort & Inspection: normal respiratory effort and no respiratory distress Auscultation: clear to auscultation bilaterally, no crackles and no wheezes Cardio: Rate: tachycardic Rhythm: abnormal rhythm Heart sounds: S1 normal heart sound present and S2 normal heart sound present GI: Inspection: Yes normal to inspection Palpation (GI): Soft to palpation, nontender, no guarding and not rigid Skin: Rashes: no rashes Wounds: no wounds Neuro: General: patient oriented x3, tone normal and no meningeal signs C ranial nerves: Yes CN's II-XII intact bilaterally Gait exam (Neuro): Normal gait present Extrem: General: Yes normal to inspection, Yes no pedal edema and Yes no calf tenderness Course Course Course Narrative: -labs reassuring, initial troponin negative. BNP 161. COVID-19 negative -1100--HR improved to 106 after 10 mg of IV diltiazem, remains in AFib >> will give additional 10 mg of IV diltiazem due to soft BP XR chest 1V IMPRESSION: No acute pulmonary pathology. -case discussed with Cardiology, Dr. Vasquez who recommended 300 mg of Flecainide -1500--patient converted to normal sinus rhythm at a rate of 67. Repeat EKG with a QTC of 395, NSR, low-voltage QRS. No STEMI. >> will continue to monitor -1557--BP 118/80, heart rate 73 > re-consulted Cardiology who recommended Toprol xl 25mg daily starting tomorrow and they will arrange appointment Results discussed with patient including worrisome signs and symptoms and strict return precautions, and when to return to the emergency department. They verbalized understanding and feel safe for discharge at this time. Medications Administered Discontinued Medications Generic Name Dose Route Start Last Admin Trade Name Freq PRN Reason Stop Dose Admin Diltiazem HCl 10 mg 03/22/23 09:21 03/22/23 09:46 Diltiazem Hcl 50 Mg/10 Ml Vial IVPUSH 03/22/23 09:22 10 mg STAT STA Administration Diltiazem HCl 10 mg 03/22/23 11:00 03/22/23 11:57 Diltiazem Hcl 50 Mg/10 Ml Vial IVPUSH 03/22/23 11:01 10 mg STAT STA Administration Flecainide Acetate 300 mg 03/22/23 12:07 03/22/23 13:32 Flecainide Acetate 50 Mg Tablet PO 03/22/23 12:08 300 mg ONCE ONE Administration Medical Decision Making Medical Decision Making MDM Narrative: 63-year-old male with a past medical history of proximal AFib not on anticoagulation, presenting to the ED complaining of palpitations/feeling anxious since last night around 21:00. On exam tachycardic, monitor showing AFib with RVR at a rate of 130s, NAD, lungs CTA. Concern for proximal AFib. Rule out metabolic/infectious etiologies including ACS. Low suspicion for PE/DVT. Plan: EKG, labs, CXR, IV diltiazem, re-evaluate [id number] Score = 0 Please refer to course for remaining clinical decision making, interpretation of labs/imaging results, and discussions with consultants and/or family members. Differential Diagnosis Differential Diagnoses: The differential diagnosis associated with the presentation includes As above Admission/Observation Consideration of admission/observation: Escalation of care including admission/observation considered Lab Data MDM Lab Attestation statement: I reviewed the patient's lab results. 03/22/23 09:07 03/22/23 09:07 Labs: Lab Results 03/22/23 03/22/23 03/22/23 Range/Units 09:07 09:32 11:56 WBC 6.7 (4.8-10.8) X10*3/uL RBC 5.86 H (4.60-5.80) X10*6/uL Hgb 15.9 (14.0-18.0) g/dl Hct 48.5 (42.0-52.0) % MCV 82.8 (80.0-98.0) fL MCH 27.1 (27.0-33.0) pg MCHC 32.8 (31.0-36.0) g/dl RDW 12.8 (11.0-16.0) % Plt Count 209 (160-400) X10*3/uL MPV 11.5 (9.4-12.4) fL Immature Gran % (Auto) 0.6 H (0.0-0.4) % Neut % (Auto) 65.1 (45-73) % Lymph % (Auto) 22.4 (20-40) % [place] % (Auto) 7.9 (2-11) % Eos % (Auto) 3.3 (0-4) % Baso % (Auto) 0.7 (0-2) % Lymph # (Auto) 1.5 (1.2-4.9) X10*3/uL [place] # (Auto) 0.5 (0.1-1.2) X10*3/uL Eos # (Auto) 0.2 (0.0-0.4) X10*3/uL Baso # (Auto) 0.1 (0.0-0.2) X10*3/uL Abs Immat Gran (auto) 0.04 H (0.00-0.03) X10*3/uL Absolute Neuts (auto) 4.4 (2.0-8.3) x10*3/uL Absolute Nucleated RBC 0.000 (0.0-0.012) X10*3/uL Nucleated RBC % (auto) 0.0 (0.0-0.2) /100WBC PT 11.5 (11.1-13.3) SEC INR 0.9 (0.9-1.1) Sodium 142 (135-145) mmol/L Potassium 4.4 (3.3-5.1) mmol/L Chloride 111 H (96-108) mmol/L Carbon Dioxide 23 (22-29) mmol/L Anion Gap 12 (12-20) BUN 10 (9-16) mg/dL Creatinine 0.85 (0.5-1.4) mg/dL Estim Creat Clear Calc 105.1 Estimated GFR > 60 Random Glucose 101 (60-115) mg/dL Calcium 9.2 (8.4-10.2) mg/dL Magnesium 2.1 (1.6-2.6) mg/dL Total Bilirubin 0.7 (0.0-1.0) mg/dL AST 18 (5-37) U/L ALT 14 (0-40) U/L Alkaline Phosphatase 79 (39-117) U/L Troponin I High Sens < 2.7 < 2.7 (<3.5-35.0) ng/L B-Natriuretic Peptide 161 H (<100) pg/mL Total Protein 6.7 (6.5-8.0) g/dL Albumin 4.0 (3.5-5.0) g/dL COVID-19 (PRABHJOT) Negative (Negative) COVID-19 Clin Com See Note Independent Interpretation I performed an independent interpretation of an: EKG (At a rate of 139. QTC 419. No STEMI. When compared to prior AFib has replaced sinus rhythm ) Radiology Impression Discussion of test interpretation with radiology: I have reviewed the radiologist's reading. Independent Historian Clinical information obtained from an independent historian. History obtained from or confirmed by: Spouse External Record Review External record reviewed: Inpatient record, Office record, Outpatient record, Prior outpatient labs, Prior outpatient radiology, Primary care record and Outside ED record Tests considered The following testing was considered but not selected: As above Prescription Management I considered prescription management with: Other Chronic Conditions Patient?s care impacted by: Other (A.fib) Critical Care Time Critical Care Time Critical Care Time: Yes Total Critical Care Time: 60 Attestation: I have personally provided critical care time exclusive of time spent on separately billable procedures. Time includes review of lab data, radiology results, discussion with consultants, and monitoring for potential decompensation. Intervention performed as documented. Discharge Plan Discharge Clinical Impression: Atrial fibrillation with rapid ventricular response Patient Disposition: Home, Self-Care Instructions: A-fib (Atrial Fibrillation) (DC) Additional Instructions: You had AVR with rapid heart rate today, this was converted back into a normal rhythm with medication Please start taking Toprol one time daily as prescribed starting tomorrow Cardiology should contact you to make an appointment however if they do not contact you tomorrow please contact them If you feel like your heart rate is fast/you have palpitations, chest pain, shortness breath, lightheadedness or dizziness return to the ED Prescriptions: New metoprolol succinate [Toprol XL] 25 mg tablet extended release 24 hr 25 mg PO DAILY 30 Days Qty: 30 0RF Referrals: [facility] [place] Cardi[facility] Services [Provider Group] - 5 days Interventions: ED Discharge Assessment Last Done: 03/22/23 16:06 Discharge Date/Time: 03/22/23 16:06
[2023-03-22 09:13] LABS: Basophils Absolute Auto 0.1 X10*3/uL (0.0-0.2); Basophils Percent Auto 0.7 % (0-2); Eosinophils Absolute Auto 0.2 X10*3/uL (0.0-0.4); Eosinophils Percent Auto 3.3 % (0-4); Hematocrit 48.5 % (42.0-52.0); Hemoglobin 15.9 g/dl (14.0-18.0); Imm Gran Abs Auto 0.04 X10*3/uL (0.00-0.03); Imm Gran Pct Auto 0.6 % (0.0-0.4); Lymphocytes Absolute Auto 1.5 X10*3/uL (1.2-4.9); Lymphocytes Percent Auto 22.4 % (20-40); Mean Corpuscular HGB Conc 32.8 g/dl (31.0-36.0); Mean Corpuscular Hemoglobin 27.1 pg (27.0-33.0); Mean Corpuscular Volume 82.8 fL (80.0-98.0); Mean Platelet Volume 11.5 fL (9.4-12.4); Monocytes Absolute Auto 0.5 X10*3/uL (0.1-1.2); Monocytes Percent Auto 7.9 % (2-11); Neutrophils Absolute Auto 4.4 x10*3/uL (2.0-8.3); Neutrophils Percent Auto 65.1 % (45-73); Platelet Count 209 X10*3/uL (160-400); Red Blood Count 5.86 X10*6/uL (4.60-5.80); Red Cell Distribution Width 12.8 % (11.0-16.0); White Blood Count 6.7 X10*3/uL (4.8-10.8)
[2023-03-22 09:19] LABS: INTERNATIONAL NORM RATIO 0.9 (0.9-1.1); Prothrombin Time 11.5 SEC (11.1-13.3)
[2023-03-22 09:34] LABS: Anion Gap 12 (12-20)
[2023-03-22 09:36] LABS: Troponin-I High Sensitivity < 2.7 ng/L (<3.5-35.0)
[2023-03-22 09:39] VITALS: BP 108/67; PULSE 107; RESP 20; O2SAT 93
[2023-03-22 09:40] LABS: Alanine Aminotransferase 14 U/L (0-40); Alkaline Phosphatase 79 U/L (39-117); Aspartate Amino Transferase 18 U/L (5-37); Bilirubin Total 0.7 mg/dL (0.0-1.0); Blood Urea Nitrogen 10 mg/dL (9-16); Calcium 9.2 mg/dL (8.4-10.2); Carbon Dioxide 23 mmol/L (22-29); Chloride 111 mmol/L (96-108); Creatinine Clr Calc Pharmacy 105.1; Estimated Glomerular Filt Rate > 60; Glucose Random 101 mg/dL (60-115); Magnesium 2.1 mg/dL (1.6-2.6); Potassium 4.4 mmol/L (3.3-5.1); Sodium 142 mmol/L (135-145); Total Protein 6.7 g/dL (6.5-8.0)
[2023-03-22] MEDS: dilTIAZem HCL 50 MG/10 ML VIAL 10 MG IVPUSH ×2 (09:46→11:57)
--- NOTE | 2023-03-22 09:50 | PC.NURSE ---
iv established, medicated per the MAR. offering no complaints at this time, call rosenthal within reach
[2023-03-22 09:51] LABS: B Type Natriuretic Peptide 161 pg/mL (<100)
[2023-03-22 09:52] LABS: COVID-19 Test Negative (Negative); IDNOW Serial# BCCEAD1C
--- NOTE | 2023-03-22 10:15 | ECG_ITS ---
Test Reason : A FIB Blood Pressure : / mmHG Vent. Rate : 106 BPM Atrial Rate : 000 BPM P-R Int : 000 ms QRS Dur : 086 ms QT Int : 314 ms P-R-T Axes : 000 -16 -07 degrees QTc Int : 417 ms Atrial fibrillation with rapid ventricular response with premature ventricular or aberrantly conducted complexes Low voltage QRS Septal infarct (cited on or before 13-JAN-2021) Abnormal ECG When compared with ECG of 22-MAR-2023 08:51, No significant change was found Referred By: Esperanza Mckinley Electronically Signed By:GILMA ROMAN
[2023-03-22 10:57] VITALS: BP 106/85; PULSE 102; RESP 21; TEMP 36.6
--- NOTE | 2023-03-22 12:08 | PC.NURSE ---
medicated per the MAR, pt continues to offer no complaints. at bedside. pt appears comfortable in bed, respirations even and unlabored. HR 90's in afib. repeat troponin obtained
[2023-03-22 12:34] VITALS: BP 101/65; PULSE 82; RESP 14; O2SAT 96
[2023-03-22 12:44] LABS: Troponin-I High Sensitivity < 2.7 ng/L (<3.5-35.0)
[2023-03-22] MEDS: Flecainide Acetate 50 MG TABLET 300 MG PO (13:32)
--- NOTE | 2023-03-22 14:52 | ECG_ITS ---
Test Reason : RE-EVAL Blood Pressure : / mmHG Vent. Rate : 067 BPM Atrial Rate : 067 BPM P-R Int : 190 ms QRS Dur : 092 ms QT Int : 374 ms P-R-T Axes : 056 -27 007 degrees QTc Int : 395 ms Normal sinus rhythm Low voltage QRS Borderline ECG When compared with ECG of 22-MAR-2023 10:51, Sinus rhythm has replaced Atrial fibrillation Vent. rate has decreased BY 39 BPM Criteria for Septal infarct are no longer Present Referred By: Esperanza Mckinley Electronically Signed By:GILMA ROMAN
--- NOTE | 2023-03-22 15:01 | PC.NURSE ---
pt converted back into NSR, ekg obtained
[2023-03-22 15:19] VITALS: BP 97/68; PULSE 70; RESP 17; O2SAT 95
== END 2023-03-22 16:06 | disposition home or self-care (01) ==
PROVIDERS: Physician Assistant; Emergency Provider Student in an Organized Health Care Education/Training Program; PCP Internal Medicine
DX: I48.20 Chronic atrial fibrillation, unspecified (principal); R00.2 Palpitations; I48.91 Unspecified atrial fibrillation; F41.1 Generalized anxiety disorder; F43.0 Acute stress reaction; R06.02 Shortness of breath; Z20.822 Contact with and (suspected) exposure to COVID-19; Z20.828 Contact with and (suspected) exposure to other viral communicable diseases; Z79.01 Long term (current) use of anticoagulants; Z79.899 Other long term (current) drug therapy
CPT/HCPCS: 36415; 80053; 83735; 83880; 84484; 85025; 85610; 87635; 93005; 99285

== ENCOUNTER 2023-03-24 15:20 | Outpatient (AMB) | payer OTHER, SELFPAY ==
--- NOTE | 2023-03-24 15:35 | MHC.OFFVIS ---
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 He had stress testing which did not show any significant abnormality. Echocardiography previously has shown normal biventricular function. 03/24/2023 he returns for follow-up. He was in the emergency department with atrial fibrillation with rapid ventricular response on 03/22/2023. It appears he reverted back to sinus rhythm. EKG 03/22/2023 showing sinus rhythm at 67 beats per minute, normal leftward axis, QTC of 395 milliseconds. He said he went to the emergency department because he was feeling very anxious and was feeling palpitations. His put her Apple watch on him and that showed atrial fibrillation with heart rate of 140s to 150s. Subsequently went to the ER where he was given flecainide and converted to sinus rhythm. He said he went home but he was feeling somewhat dizzy and off balance. Also he went out yesterday and was confused because he already filled gas but went back to the gas station. He seems forgetful to me currently and is not answering questions quickly and his is prompting him a lot. He is denying any weakness or numbness any part of the body. He is currently taking Toprol XL 25 mg which he started last night. He is saying he was not taking it previously. His blood pressure manually is 110/60. [facility] Medical History Afib Annual physical exam Subcutaneous mass of back Surgical History History of left inguinal hernia repair (~12/04/22) History of cataract surgery History of excision of mass (~2020) S/P appendectomy Family History Father No problems noted. Mother No problems noted. 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 Cognitive needs: No Hearing needs: No Vision needs: Yes Review of Systems ENT Reports dizziness Card Denies chest pain, Denies chest pain at rest, Denies chest pain with activity, Denies rapid heart rate, Denies pedal edema, Denies edema, Denies leg edema, Denies lightheadedness, Denies palpitations, Denies dyspnea, Denies dyspnea on exertion and Denies orthopnea Resp Denies cough, Denies dyspnea and Denies dyspnea on exertion GI Denies hematochezia and Denies change in stool character Musc Denies abnormal gait, Reports limited range of motion, Reports muscle cramps, Denies muscle weakness, Denies numbness, Denies radiating pain into limb, Denies stiffness and Denies tingling Neuro Denies abnormal gait, Reports dizziness, Denies numbness and Denies tingling Endo Denies palpitations Physical Exam Vital Signs: Last Vital Signs Pulse 54 03/24/23 15:36 BP 80/52 L 03/24/23 15:36 BMI result Body Mass Index 27.6 manual BP 110/60 GENERAL APPEARANCE: in no acute distress, pleasant. NECK: no carotid bruit, no jugular venous distention. SKIN: no suspicious lesions, warm and dry. HEART: no murmurs, regular rate and rhythm. LUNGS: clear to auscultation bilaterally. ABDOMEN: soft, nontender. EXTREMITIES: no edema. PERIPHERAL PULSES: equal. NEUROLOGIC: No gross deficits, AAO X 3 Office Procedures EKG Details: Sinus bradycardia 54 beats per minute, normal axis, QTC 375 milliseconds. [id number], Complete Assessment & Plan Assessment & Plan (1) Confusion: Code(s): R41.0 - Disorientation, unspecified (2) PAF (paroxysmal atrial fibrillation): Code(s): I48.0 - Paroxysmal atrial fibrillation Plan Pleasant 63-year-old gentleman who is here for follow-up. He was in the emergency department on 03/22/2023 with palpitations and anxiety like feeling and was in AFib with RVR. He was given flecainide in the ER and converted to sinus rhythm. He is currently in sinus rhythm. His blood pressure is 110/60 manually. I have advised him to keep himself well hydrated. He is confused and somewhat off. He just reverted to sinus rhythm a day ago. I have discussed with the and advised him to get a head MRI to rule out any stroke. We will arrange this or gently. Continue Toprol XL. I am sending him flecainide for pill in the pocket approach which he can use as needed. Thank you for allowing me to participate in the care of your patient. Please feel free to contact me if you have any questions. Orders: Orders MR head/brain wo con Today R41.0 - Disorientation, unspecified Medications: New flecainide 300 mg orally (2 tablets) as needed. Please do no repeat in 24 hours. If recurrent symptoms go to the ER.; 30 tabs 0RF PAF Coding Level of Care Code Est Pt Level 4 (37652) Diagnoses Confusion R41.0 PAF (paroxysmal atrial fibrillation) I48.0 CPT Codes EKG - CPT: 57815-[id number], Complete ([id number])
[2023-03-24 15:36] VITALS: BP 80/52; PULSE 54; BMI 27.6
== END 2023-03-24 16:10 | disposition home or self-care (01) ==
PROVIDERS: PCP Internal Medicine; Visit Provider Internal Medicine Cardiovascular Disease
DX: R41.0 Disorientation, unspecified (principal); I48.0 Paroxysmal atrial fibrillation
CPT/HCPCS: 93010; 99214

== ENCOUNTER → 2023-03-24 15:20 | Outpatient (BNVA) | payer OTHER, SELFPAY | PROVIDERS: PCP Internal Medicine; Visit Provider Internal Medicine Cardiovascular Disease | DX: I48.0 Paroxysmal atrial fibrillation (principal); R41.0 Disorientation, unspecified; Z79.899 Other long term (current) drug therapy | CPT/HCPCS: 93005 ==

== ENCOUNTER 2023-04-09 19:33 | Outpatient (REF) | payer OTHER, SELFPAY ==
--- NOTE | ~2023-04-09 | MR_ITS ---
EXAMINATION: MR BRAIN WITHOUT CONTRAST CLINICAL INFORMATION: episode of afib on 03/22. Converted to sinus rhythm but since has been off balance with episodes of confusion. Rule out CVA. COMPARISON: None TECHNIQUE: Multiplanar multisequence MR imaging of the brain was obtained without intravenous contrast. FINDINGS: There is no acute infarct on diffusion-weighted imaging. There is no intracranial hemorrhage on iron-sensitive imaging. No extra-axial collection or mass effect/herniation. Scattered periventricular and deep white matter T2 FLAIR hyperintensities consistent with mild underlying microangiopathy. No hydrocephalus. The ventricles are normal in morphology and size. The major flow voids at the skull base are preserved. The midline structures are normal. The cerebellar tonsils are normally positioned. The craniocervical junction is normal. Small marrow replacing lesion involving the right parietal calvarium (series 8 image 24, series 7 image 23) demonstrates T1 hypointense and T2 hyperintense signal with speckled appearance, nonspecific favored to represent a lipid poor hemangioma. There are soft tissue nodules involving the skin of the right parietal and occipital scalp, likely representing a sebaceous cysts. Ethmoid and frontal sinus mucosal thickening. Small left maxillary sinus retention cyst. MR/MR head/brain wo con IMPRESSION: 1. No acute/subacute infarct or other acute intracranial abnormality. 2. Small marrow replacing lesion involving the right parietal calvarium is nonspecific but favored to represent a lipid poor hemangioma.
== END 2023-04-09 19:34 | disposition home or self-care (01) ==
LOC: HO.MRI 19:33
PROVIDERS: PCP Internal Medicine; Visit Provider Internal Medicine Cardiovascular Disease
DX: R41.0 Disorientation, unspecified (principal)
CPT/HCPCS: 70551

== ENCOUNTER 2023-08-02 10:15 | Outpatient (AMB) | payer OTHER, SELFPAY ==
[2023-08-02 11:09] VITALS: BP 100/88; PULSE 62; TEMP 36.5; O2SAT 97
--- NOTE | 2023-08-02 11:09 | MHC.OFFWIV ---
Intake Vital Signs 08/02/23 11:09 Height 5 ft 11 in BP 100/88 Blood Pressure Location Rt brachial Position Sitting Pulse 62 Pulse Source Pulse Oximeter Temp 97.7 F Temp Source Oral Pulse Oximetry (%) 97 Oxygen Delivery Method Room Air Intake Visit Reasons: EP Cough Post COVID 06/25 Intake Note: pt is here for c.o cough due to post covid on 06/25/23 Patient Tobacco Use Status: Never used Tobacco Allergies Penicillins [PCN] Allergy (Unknown, Verified 08/02/23 11:10) HIVES Do you need a note to return to daycare/school/sports/work: No HPI HPI Comments History of Present Illness Details Patient presents to the walk in clinic with complaint of cough for 3 weeks States had covid end of june, other symptoms have resolved but cough persists Non-productive, worse at night when trying to sleep Denies chest pain, shortness of breath, headaches, weakness, syncope, vomiting, diarrhea Has been trying to increase po fluid intake Going on vacation in 1 week, hoping to get rid of the cough before then REPLACED BY [facility] Medical History Subcutaneous mass of back Afib Annual physical exam Surgical History History of left inguinal hernia repair (~12/04/22) History of cataract surgery History of excision of mass (~2020) S/P appendectomy Family History Father No problems noted. Mother No problems noted. 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 Answers questions appropriately. Fully engaged in examination. Skin: warm, dry, intact HEENT: TMs intact bilaterally. Posterior pharynx without erythema or exudate. Sclera without icterus or injection. Cardiac: External chest normal in appearance. HR regular Respiratory: + dry cough. LSCTAB. Abdomen: without gross distension. Neurological: Oriented to person, place, time and situation. Thought process intact. Psychiatric: Appropriate mood and affect. Good judgment and insight. Assessment & Plan Assessment & Plan (1) URI (upper respiratory infection): Code(s): J06.9 - Acute upper respiratory infection, unspecified (2) Cough: Code(s): R05.9 - Cough, unspecified Plan URI, no abx warranted. Prednisone 40mg po daily X 5 days Rest, drink plenty of fluids, tylenol or motrin as needed. Follow up with pcp or in clinic for any new or worsening symptoms. Go to ER for shortness of breath, chest pain, palpitations, weakness, dizziness. Medications: New prednisone 40 mg (2 x 20 mg) PO DAILY 5 days 10 tabs 0RF Coding Level of Care Code Est Pt Level 4 (17091) Diagnoses URI (upper respiratory infection) J06.9 Cough R05.9
== END 2023-08-02 12:03 | disposition home or self-care (01) ==
PROVIDERS: PCP Internal Medicine; Visit Provider Registered Nurse Emergency
DX: J06.9 Acute upper respiratory infection, unspecified (principal); R05.9 Cough, unspecified
CPT/HCPCS: 99213

== ENCOUNTER → 2023-08-16 09:48 | Outpatient (BNVA) | payer OTHER, SELFPAY | PROVIDERS: PCP Internal Medicine; Visit Provider Nurse Practitioner Family | DX: I48.0 Paroxysmal atrial fibrillation (principal); R00.2 Palpitations; R06.02 Shortness of breath; G47.10 Hypersomnia, unspecified; Z79.899 Other long term (current) drug therapy | CPT/HCPCS: 93005 ==

== ENCOUNTER 2023-08-16 09:50 | Outpatient (AMB) | payer OTHER, SELFPAY ==
[2023-08-16 09:51] VITALS: BP 100/64; PULSE 57; BMI 28.1
--- NOTE | 2023-08-16 09:51 | A.OFFVIS_ITS ---
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 Today he reports that he has had several episodes of atrial fibrillation since his last visit in March. He has been taking flecainide pill in the pocket 300 mg when his AFib occurs. Usually in less than an hour the AFib will resolve. He can feel the heart palpitations and anxiety in his chest when he has AFib. He denies any chest discomfort or concerning shortness of breath. No presyncope, syncope, falls. No PND, orthopnea or edema. He is active thro ughout the day. His is present and she has concerns about possible sleep apnea. She states he does snore then sometimes stops breathing. She describes his baseline mental status as slow to respond. After he has had AFib she feels this is a little more noticeable. He has not had any neurological changes, vision disturbances, weakness of extremities. [facility] Medical History Subcutaneous mass of back Afib Annual physical exam Surgical History History of left inguinal hernia repair (~12/04/22) History of cataract surgery History of excision of mass (~2020) S/P appendectomy Family History Father No problems noted. Mother No problems noted. 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 Cognitive needs: No Hearing needs: No Vision needs: Yes Review of Systems Const All systems reviewed & are unremarkable except as noted in HPI and below ENT Denies dizziness Card Details: anxiety in chest Denies chest pain, Denies chest pain at rest, Denies chest pain with activity, Reports rapid heart rate, Denies pedal edema, Denies edema, Denies leg edema, Denies lightheadedness, Reports palpitations, Denies dyspnea, Denies dyspnea on exertion and Denies orthopnea Resp Denies cough, Denies dyspnea and Denies dyspnea on exertion GI Denies hematochezia and Denies change in stool character Musc Denies abnormal gait, Denies limited range of motion, Denies muscle cramps, Denies muscle weakness, Denies numbness, Denies radiating pain into limb, Denies stiffness and Denies tingling Neuro Denies abnormal gait, Denies dizziness, Denies numbness and Denies tingling Endo Reports palpitations Physical Exam Vital Signs: Last Vital Signs Pulse 57 08/16/23 09:51 BP 100/64 08/16/23 09:51 BMI result Body Mass Index 28.1 Const General: cooperative, healthy appearing, comfortable and no acute distress Orientation/consciousness: patient oriented x3 Neck Neck: Yes normal visual inspection Resp Effort & Inspection: normal respiratory effort Auscultation: clear to auscultation bilaterally, no crackles, no rales, no rhonchi and no wheezes Cardio Jugular venous distension: no JVD Rate: regular rate Rhythm: regular rhythm Heart sounds: S1 normal heart sound present, S2 normal heart sound present, no murmurs and no rubs Neuro General: patient oriented x3 Extrem General: Yes normal to inspection and No no pedal edema Psych Appearance: grossly normal Mental Status: mental status grossly normal Speech and movement: Normal speech and movement present Office Procedures EKG Details: today, read by me, SB, incomplete RBBB, rate 57, QTc 395ms [id number], Complete Assessment & Plan Assessment & Plan (1) Afib: Comment: paroxysmal 12/2020, nl stress test 10/31 and nl echo 02/2021 Code(s): I48.91 - Unspecified atrial fibrillation Plan: History of paroxysmal atrial fibrillation. Episodes had been few and far between however more recently has been having them regularly. Has had approximately 10 episodes since his visit in March. He takes flecainide pill in the pocket approach, 300 mg when AFib is noticed. He will then convert back to sinus rhythm within an hours time. He continues to take metoprolol XL 25 mg daily. At times he has woken up in the morning in atrial fibrillation. He feels that when he is anxious, excited or fatigued the AFib comes on easier. He does not know any other triggers. His feels he may have sleep apnea. He does have some daytime fatigue. Will order a home sleep study. He has not requiring anticoagulation at this time, chads Vasc score of 0. EKG done today showing sinus bradycardia, incomplete right bundle branch block, rate 57, QTC [address] Med[address] Landaverde. Will stop flecainide pill in the pocket approach. Will start flecainide 50 mg b.i.d.. Continue metoprolol XL 25 mg daily. He does have some increasing shortness of breath with activity. Will update exercise stress test to evaluate for any ischemia. Will update echocardiogram to reassess EF, wall motion and chamber sizes. Last echo 02/2021 had showed moderately dilated left atrium. Cardiology follow-up proximally 2 weeks, sooner if needed. His cardiac testing may not be done prior to that visit. Then plan to call him with those results. Will need an EKG at that time to evaluate heart rate and QTC interval on daily flecainide. Emergency care if needed for sustained heart palpitations. Can take an additional flecainide dose if needed. (2) Palpitation: Code(s): R00.2 - Palpitations Plan: As above (3) Shortness of breath: Code(s): R06.02 - Shortness of breath Plan: Newer symptom, as above (4) Hypersomnia: Code(s): G47.10 - Hypersomnia, unspecified Plan: Home sleep study Plan Time spent on chart review, documentation, interview and assessment Orders: Orders CA stress test Today I48.91 - Unspecified atrial fibrillation, R00.2 - Palpitations RT home sleep study Today G47.10 - Hypersomnia, unspecified CA echo transthoracic complete Today I48.91 - Unspecified atrial fibrillation, R00.2 - Palpitations Medications: New flecainide 50 mg PO Q12H 30 days 60 tabs 2RF Discontinued flecainide 300 mg orally (2 tablets) as needed. Please do no repeat in 24 hours. If recurrent symptoms go to the ER Discontinued Reason: Doctor's Order 300 mg (2 x 150 mg) PO DIRECTED 90 days PRN 30 tabs 1RF PAF Coding Level of Care Code Est Pt Level 4 (78621) Diagnoses Afib I48.91 Palpitation R00.2 Shortness of breath R06.02 Hypersomnia G47.10 CPT Codes EKG - CPT: 39456-[id number], Complete ([id number]) Time Spent (min) 30
== END 2023-08-16 10:53 | disposition home or self-care (01) ==
PROVIDERS: PCP Internal Medicine; Visit Provider Nurse Practitioner Family
DX: I48.91 Unspecified atrial fibrillation (principal); R00.2 Palpitations; R06.02 Shortness of breath; G47.10 Hypersomnia, unspecified
CPT/HCPCS: 93010; 99214

== ENCOUNTER 2023-09-06 08:29 | Outpatient (AMB) | payer OTHER, SELFPAY ==
[2023-09-06 08:32] VITALS: BP 100/74; PULSE 51; BMI 28.7
--- NOTE | 2023-09-06 08:32 | A.OFFVIS_ITS ---
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 On last visit his flecainide pill in the pocket approach was changed to daily dosing. Today he reports that he has noticed 2 recent brief episodes of atrial fibrillation associated with skipped doses of the evening flecainide. Knows that if he takes his medication on schedule then he does not get the AFib. He feels a anxious feeling in his chest and then will check his watch and noticed that his heart rate is more elevated. He then will lay down and relax and heart rate and rhythm quickly returned to normal without further treatment. He denies any chest discomfort, shortness of breath, actual palpitations, presyncope, syncope, PND, orthopnea or edema. He has upcoming cardiac testing planned in September. [facility] Medical History Subcutaneous mass of back Afib Annual physical exam Surgical History History of left inguinal hernia repair (~12/04/22) History of cataract surgery History of excision of mass (~2020) S/P appendectomy Family History Father No problems noted. Mother No problems noted. 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 Cognitive needs: No Hearing needs: No Vision needs: Yes Review of Systems Const All systems reviewed & are unremarkable except as noted in HPI and below ENT Denies dizziness Card Denies chest pain, Denies chest pain at rest, Denies chest pain with activity, Reports rapid heart rate, Denies pedal edema, Denies edema, Denies leg edema, Denies lightheadedness, Denies palpitations, Denies dyspnea, Reports dyspnea on exertion and Denies orthopnea Resp Denies cough, Denies dyspnea and Reports dyspnea on exertion GI Denies hematochezia and Denies change in stool character Musc Denies abnormal gait, Denies limited range of motion, Denies muscle cramps, Denies muscle weakness, Denies numbness, Denies radiating pain into limb, Denies stiffness and Denies tingling Neuro Denies abnormal gait, Denies dizziness, Denies numbness and Denies tingling Endo Denies palpitations Physical Exam Vital Signs: Last Vital Signs Pulse 51 09/06/23 08:32 BP 100/74 09/06/23 08:32 BMI result Body Mass Index 28.7 Const General: cooperative, healthy appearing, comfortable and no acute distress Orientation/consciousness: patient oriented x3 Neck Neck: Yes normal visual inspection and Yes no JVD Resp Effort & Inspection: normal respiratory effort Auscultation: clear to auscultation bilaterally, no crackles, no rales, no rhonchi and no wheezes Cardio Jugular venous distension: no JVD Rate: regular rate Rhythm: regular rhythm Heart sounds: S1 normal heart sound present, S2 normal heart sound present, no murmurs and no rubs Neuro General: patient oriented x3 Extrem General: Yes normal to inspection and No no pedal edema Psych Appearance: grossly normal Mental Status: mental status grossly normal Speech and movement: Normal speech and movement present Office Procedures EKG Details: Today, read by me, sinus bradycardia, incomplete right bundle branch block, rate 51, QTC 381 millisecond [id number], Complete Assessment & Plan Assessment & Plan (1) Afib: Comment: paroxysmal 12/2020, nl stress test 10/31 and nl echo 02/2021 Code(s): I48.91 - Unspecified atrial fibrillation Plan: History of paroxysmal atrial fibrillation. Episodes had been few and far between however more recently has been having them regularly. Has had approximately 10 episodes since his visit in March. He takes flecainide pill in the pocket approach, 300 mg when AFib is noticed. He will then convert back to sinus rhythm within an hours time. He continued to take metoprolol XL 25 mg daily. He does not know any other triggers. On last visit his flecainide was changed from pill in the pocket approach over to 50 mg b.i.d.. He was continued on metoprolol XL 25 mg daily. He is not requiring anticoagulation due to low CHADS-VASc score of 0. On last visit an echocardiogram, exercise stress test and sleep study were ordered. Those tests are scheduled to be done next month. An EKG done today shows sinus bradycardia, incomplete right bundle branch block, rate 51. Patient was ambulated in the hallway using sat monitor and pulse telma up to 60. He is denying fatigue, activity intolerance. Will continue on current med management. Cardiology follow-up in 4-6 weeks to go over test results and recheck or AFib, sooner if needed (2) Palpitation: Code(s): R00.2 - Palpitations Plan: As above (3) Shortness of breath: Code(s): R06.02 - Shortness of breath Plan: Newer symptom, checking stress test as above (4) Hypersomnia: Code(s): G47.10 - Hypersomnia, unspecified Plan: Home sleep study Plan Time spent on chart review, documentation, interview and assessment Coding Level of Care Code Est Pt Level 3 (42183) Diagnoses Afib I48.91 Palpitation R00.2 Shortness of breath R06.02 Hypersomnia G47.10 CPT Codes EKG - CPT: 15828-[id number], Complete ([id number]) Time Spent (min) 24
== END 2023-09-06 08:57 | disposition home or self-care (01) ==
PROVIDERS: PCP Internal Medicine; Visit Provider Nurse Practitioner Family
DX: I48.91 Unspecified atrial fibrillation (principal); R00.2 Palpitations; R06.02 Shortness of breath; G47.10 Hypersomnia, unspecified
CPT/HCPCS: 93010; 99213

== ENCOUNTER → 2023-09-06 08:29 | Outpatient (BNVA) | payer OTHER, SELFPAY | PROVIDERS: PCP Internal Medicine; Visit Provider Nurse Practitioner Family | DX: I48.0 Paroxysmal atrial fibrillation (principal); R00.2 Palpitations; R06.02 Shortness of breath; G47.10 Hypersomnia, unspecified; Z79.899 Other long term (current) drug therapy | CPT/HCPCS: 93005 ==

== ENCOUNTER → 2023-09-27 08:53 | Outpatient (REF) | payer OTHER, SELFPAY ==
--- NOTE | 2023-09-27 08:55 | CA_ITS ---
Acquisition Time: 2023-09-27 09:51:12 Total Exercise Time: 00:10:13 Test Indications: Dyspnea Medications: FLECAINIDE METOPROLOL Protocol: TAQUERIA Max HR: 122 BPM 76% of Pred: 159 BPM Max BP: 152/074 mmHG Max Work Load: 12.1 METS Exercise stress test exercise 10 min 13 sec of Taqueria protocol achieving 77% MPHR, without anginal symptoms, without arrhythmias, with normotensive response to exercise, with slow heart rate response, without EKG changes at achieved workload. Test reviewed with Dr. Vasquez. Referred By: Renetta Redmond Overread By: Jacey An
--- NOTE | 2023-09-27 08:55 | CA_ITS ---
Transthoracic Echocardiogram Patient (Last, First, Middle): Benoit Dailey J Gender: Male Date of : 1960 Age: 63 Procedure Date: 09/27/2023 Procedure Type: Transthoracic Echocardiogram Location: OP Height: 180. 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 The calculated ejection fraction is 61% by biplane method. - No obvious valvular pathology seen on this study. - There is mild dilatation of the ascending aorta measuring 4.30 cm. Findings Left Ventricle Normal left ventricular cavity size. There is mildly increased left ventricular wall thickness. The left ventricular systolic function is normal. The calculated ejection fraction is 61% by biplane method. There is no evidence of regional wall motion abnormalities. Diastolic function is normal for age. LV peak GLS -17.9%. Right Ventricle Mildly increased right ventricular cavity size. There is normal right ventricular systolic function. Atria Both atria are normal in size. Aortic Valve There is a normal trileaflet aortic valve. There is no aortic valve stenosis. There is no aortic valve regurgitation. Mitral Valve The mitral valve appears normal. There is trace mitral valve regurgitation. There is no mitral valve stenosis. Pulmonic Valve The pulmonic valve is likely normal. Tricuspid Valve Normal tricuspid valve structure. There is trace tricuspid valve regurgitation. There is no evidence of pulmonary hypertension. Great Vessels There is mild dilatation of the ascending aorta measuring 4.30 cm. Venous The inferior vena cava is normal in size and collapses greater than 50% with inspiration. Pericardium/Pleural There is no evidence of pericardial effusion. Prior Study Comparison Changes noted compared to prior study dated: 03/07/2021. Increase in ascending aortic size. Recommendations, Care & Conclusions No obvious valvular pathology seen on this study. Measurements 2D Linear Measurements IVSd: 1.19 0.6-0.9/0.6-1.0 cm LVIDd: 4.97 3.9-5.3/4.2-5.9 cm LVIDd Index: 2.36 2.4-3.2/2.2-3.1 cm/m2 LVIDs: 3.06 2.0-3.6 cm LVPWd: 1.18 0.7-1.1 cm LA Diam: 3.90 2.7-3.8/3.0-4.0 cm LAIDs Index: 1.85 1.5-2.3 cm/m2 LV Mass: 283.59 67-162/88-224 g LV Mass Index: 134.40 43-95/49-115 g/m2 LVOT Diam: 2.30 3.0+(-)1.3 cm 2D Systolic Function EF 4C: 61.70 >55% EF 2C: 62.40 >55% EF BiP: 60.50 >55% Mitral Valve MV Pk E: 0.76 MV PK A: 0.70 MV Decel Time: 257.00 E/A: 1.10 E'Lateral: 8.70 E'Medial: 6.74 E/E' Med: 11.30 E/E' Lat: 8.80 PHT: 75.00 MVA PHT: 2.93 Decel Crowley: 2.97 Aortic Valve AoV Pk Orlando: 1.54 AoV Mn Orlando: 1.01 AoV VTI: 0.34 AoV Pk Grad: 9.00 Aov Mn Grad: 5.00 NEISHA Cont.VTI: 3.37 LVOT LVOT Pk Orlando: 1.26 LVOT Mn Orlando: 0.83 LVOT VTI: 0.28 LVOT Pk Grad: 6.00 LVOT Mn Grad: 3.00 LVOT Diam: 2.30 LVOT Area: 4.15 Diastolic Function MV Pk E: 0.76 MV Pk A: 0.70 E/A: 1.10 E'Medial: 6.74 E/E' Med: 11.30 E' Laterial: 8.70 E/E' Lat: 8.80 Right Ventricle TAPSE (mm): 29.00 TVS' Orlnado: 15.10 Tricuspid Valve TR Pk Orlando: 1.50 TR Pk Grad: 9.00 RA Press: 3.00 RVSP: 12.00 Great Vessels Aorta Sinus of Valsalva: 3.60 2.0-3.5 cm Ao Asc: 4.40 2.1-3.4 cm Pulmonary Valve PV Pk Orlando: 1.22 Peak PV Grad: 6.00 Updated in Other Vendor System with Status of Final Darion Vasquez MD electronically signed on 09/27/2023 10:37:29 AM with status of Final
== END ==
LOC: HO.CARD 08:53
PROVIDERS: PCP Internal Medicine; Visit Provider Nurse Practitioner Family
DX: I48.91 Unspecified atrial fibrillation (principal); R00.2 Palpitations
CPT/HCPCS: 93017; 93306; 93356

== ENCOUNTER → 2023-09-27 08:55 | Outpatient (BNV) | payer OTHER, SELFPAY | PROVIDERS: PCP Internal Medicine; Visit Provider Internal Medicine | DX: R00.1 Bradycardia, unspecified (principal); R06.00 Dyspnea, unspecified; I77.810 Thoracic aortic ectasia | CPT/HCPCS: 93016; 93018; 93350; 93356 ==

== ENCOUNTER 2023-10-18 08:24 | Outpatient (AMB) | payer OTHER, SELFPAY ==
--- NOTE | 2023-10-18 08:27 | MHC.OFFVIS ---
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 Today he reports that he has not noticed any recurrent atrial fibrillation since his last visit. He feels he is doing well on his b.i.d. flecainide dosing. With the AFib he notices and anxious feeling in his chest. Also notices elevated heart rate using his smart watch. Recently his heart rate has been well controlled. He has some shortness of breath with activity which is not new. No chest discomfort, palpitations, presyncope, syncope, PND, orthopnea or edema. present. Informs me that patient is due for blood work and if PSA can be performed as patient will only agreed to one stick. Patient did not complete sleep study. [facility] Medical History Subcutaneous mass of back Afib Annual physical exam Surgical History History of left inguinal hernia repair (~12/04/22) History of cataract surgery History of excision of mass (~2020) S/P appendectomy Family History Father No problems noted. Mother No problems noted. 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 Cognitive needs: No Hearing needs: No Vision needs: Yes Review of Systems Const All systems reviewed & are unremarkable except as noted in HPI and below ENT Denies dizziness Card Denies chest pain, Denies chest pain at rest, Denies chest pain with activity, Denies rapid heart rate, Denies pedal edema, Denies edema, Denies leg edema, Denies lightheadedness, Denies palpitations, Denies dyspnea, Denies dyspnea on exertion and Denies orthopnea Resp Denies cough, Denies dyspnea and Denies dyspnea on exertion GI Denies hematochezia and Denies change in stool character Musc Denies abnormal gait, Denies limited range of motion, Denies muscle cramps, Denies muscle weakness, Denies numbness, Denies radiating pain into limb, Denies stiffness and Denies tingling Neuro Denies abnormal gait, Denies dizziness, Denies numbness and Denies tingling Endo Denies palpitations Physical Exam Vital Signs: Last Vital Signs Pulse 55 10/18/23 08:28 BP 102/72 10/18/23 08:28 BMI result Body Mass Index 28.8 Const General: cooperative, healthy appearing, comfortable and no acute distress Orientation/consciousness: patient oriented x3 Neck Neck: Yes normal visual inspection and Yes no JVD Resp Effort & Inspection: normal respiratory effort Auscultation: clear to auscultation bilaterally, no crackles, no rales, no rhonchi and no wheezes Cardio Jugular venous distension: no JVD Rate: regular rate Rhythm: regular rhythm Heart sounds: S1 normal heart sound present, S2 normal heart sound present, no murmurs and no rubs Neuro General: patient oriented x3 Extrem General: Yes normal to inspection and No no pedal edema Psych Appearance: grossly normal Mental Status: mental status grossly normal Speech and movement: Normal speech and movement present Office Procedures EKG Details: Today, read by me, Sinus bradycardia, incomplete RBBB, rate 55, QTc 399ms [id number], Complete Assessment & Plan Assessment & Plan (1) Afib: Comment: paroxysmal 12/2020, nl stress test 10/31 and nl echo 02/2021 Code(s): I48.91 - Unspecified atrial fibrillation Plan: History of paroxysmal atrial fibrillation. Episodes had been few and far between however more recently has been having them regularly. His pill in the pocket flecainide was changed to flecainide 50 mg b.i.d.. He continues on metoprolol XL 25 mg daily. He does not know any other triggers. He is not requiring anticoagulation due to low CHADS-VASc score of 0. Echocardiogram was done on 09/27/2023 showing EF 61%, no valve abnormalities, ascending aorta 4.3 cm. An exercise stress test was done on 09/27/2023 with exercise 10 minutes 13 seconds, no anginal symptoms and no EKG changes of ischemia at achieved workload. Test results reviewed with him in detail. EKG done today shows sinus bradycardia, incomplete right bundle branch block heart rate 55, QTC 399 milliseconds. Sleep study was ordered however patient has opted not to do. He does not believe he has sleep apnea. Will continue on current med management. Instructed to call if he has recurrent issues with atrial fibrillation. Emergency care if needed for sustained episodes or symptoms. Cardiology office visit in 6 months, sooner if needed. (2) Palpitation: Code(s): R00.2 - Palpitations Plan: As above (3) Shortness of breath: Code(s): R06.02 - Shortness of breath Plan: Noted with exertional activities at times Plan Time spent on chart review, documentation, interview and assessment Orders: Orders Comprehensive Rice. Panel Fast Today I48.91 - Unspecified atrial fibrillation, R06.02 - Shortness of breath Lipid Panel Today I48.91 - Unspecified atrial fibrillation Complete Blood Count Auto Diff Today I48.91 - Unspecified atrial fibrillation, R06.02 - Shortness of breath PSA,Total (Free>4and<10) Today I48.91 - Unspecified atrial fibrillation, R06.02 - Shortness of breath, Z00.00 - Encounter for general adult medical examination without abnormal findings Coding Level of Care Code Est Pt Level 4 (80085) Diagnoses Afib I48.91 Palpitation R00.2 Shortness of breath R06.02 CPT Codes EKG - CPT: 64111-[id number], Complete ([id number]) Time Spent (min) 30
[2023-10-18 08:28] VITALS: BP 102/72; PULSE 55; BMI 28.8
== END 2023-10-18 09:02 | disposition home or self-care (01) ==
PROVIDERS: PCP Internal Medicine; Visit Provider Nurse Practitioner Family
DX: I48.91 Unspecified atrial fibrillation (principal); R00.2 Palpitations; R06.02 Shortness of breath
CPT/HCPCS: 93010; 99214

== ENCOUNTER → 2023-10-18 08:24 | Outpatient (BNVA) | payer OTHER, SELFPAY | PROVIDERS: PCP Internal Medicine; Visit Provider Nurse Practitioner Family | DX: I48.0 Paroxysmal atrial fibrillation (principal); R00.2 Palpitations; R06.02 Shortness of breath; Z79.899 Other long term (current) drug therapy | CPT/HCPCS: 93005 ==

== ENCOUNTER 2023-10-25 08:29 | Outpatient (REF) | payer OTHER, SELFPAY ==
[2023-10-25 10:26] LABS: MANUAL DIFF FLAG NO
[2023-10-25 10:33] LABS: Basophils Percent Auto 0.6 % (0-2); Eosinophils Absolute Auto 0.3 X10*3/uL (0.0-0.4); Eosinophils Percent Auto 5.4 % (0-4); Hematocrit 47.2 % (42.0-52.0); Hemoglobin 15.4 g/dl (14.0-18.0); Imm Gran Abs Auto 0.06 X10*3/uL (0.00-0.03); Lymphocytes Absolute Auto 1.5 X10*3/uL (1.2-4.9); Lymphocytes Percent Auto 23.8 % (20-40); Mean Corpuscular HGB Conc 32.6 g/dl (31.0-36.0); Mean Corpuscular Hemoglobin 27.3 pg (27.0-33.0); Mean Corpuscular Volume 83.7 fL (80.0-98.0); Monocytes Absolute Auto 0.5 X10*3/uL (0.1-1.2); Monocytes Percent Auto 7.7 % (2-11); Neutrophils Absolute Auto 3.9 x10*3/uL (2.0-8.3); Neutrophils Percent Auto 61.5 % (45-73); Platelet Count 206 X10*3/uL (160-400); Red Blood Count 5.64 X10*6/uL (4.60-5.80); Red Cell Distribution Width 12.9 % (11.0-16.0); White Blood Count 6.3 X10*3/uL (4.8-10.8)
[2023-10-25 10:51] LABS: Alanine Aminotransferase 13 U/L (0-40); Albumin Level 4.2 g/dL (3.5-5.0); Alkaline Phosphatase 78 U/L (39-117); Anion Gap 11 (12-20); Aspartate Amino Transferase 14 U/L (5-37); Bilirubin Total 0.9 mg/dL (0.0-1.0); Blood Urea Nitrogen 11 mg/dL (9-16); Calcium 9.3 mg/dL (8.4-10.2); Carbon Dioxide 26 mmol/L (22-29); Chloride 106 mmol/L (96-108); Cholesterol 185 mg/dL (<200); Estimated Glomerular Filt Rate > 60; Glucose Fasting 85 mg/dL (60-99); HDL Cholesterol 43 mg/dL (>40); LDL Cholesterol Calculated 128 mg/dL (<100); Potassium 4.1 mmol/L (3.3-5.1); Sodium 139 mmol/L (135-145); Total Protein 6.9 g/dL (6.5-8.0); Triglycerides 70 mg/dL (<150)
[2023-10-25 11:03] LABS: PSA,Total (Free>4and<10) 1.33 ng/mL (0.00-4.00)
== END 2023-10-25 08:30 | disposition home or self-care (01) ==
LOC: HO.HMGCLDS 08:29
PROVIDERS: PCP Internal Medicine; Visit Provider Nurse Practitioner Family
DX: Z00.00 Encounter for general adult medical examination without abnormal findings (principal); Z12.5 Encounter for screening for malignant neoplasm of prostate; Z13.6 Encounter for screening for cardiovascular disorders; I48.91 Unspecified atrial fibrillation; R06.02 Shortness of breath
CPT/HCPCS: 36415; 80053; 80061; 84153; 85025

== ENCOUNTER 2024-04-17 10:45 | Outpatient (AMB) | payer OTHER, SELFPAY ==
[2024-04-17 10:54] VITALS: BP 100/62; PULSE 54; BMI 28.2
--- NOTE | 2024-04-17 10:54 | MHC.OFFVIS ---
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 He had stress testing which did not show any significant abnormality. Echocardiography previously has shown normal biventricular function. 03/24/2023 he returns for follow-up. He was in the emergency department with atrial fibrillation with rapid ventricular response on 03/22/2023. It appears he reverted back to sinus rhythm. EKG 03/22/2023 showing sinus rhythm at 67 beats per minute, normal leftward axis, QTC of 395 milliseconds. He said he went to the emergency department because he was feeling very anxious and was feeling palpitations. His put her Apple watch on him and that showed atrial fibrillation with heart rate of 140s to 150s. Subsequently went to the ER where he was given flecainide and converted to sinus rhythm. He said he went home but he was feeling somewhat dizzy and off balance. Also he went out yesterday and was confused because he already filled gas but went back to the gas station. He seems forgetful to me currently and is not answering questions quickly and his is prompting him a lot. He is denying any weakness or numbness any part of the body. He is currently taking Toprol XL 25 mg which he started last night. He is saying he was not taking it previously. His blood pressure manually is 110/60. 04/17/2024: He is here for follow-up. Denying any chest pain or shortness of breath. No palpitations. Recently was in the hot tub and started sweating and was dizzy. He is saying he does not drink lot of water. He said he was dizzy all day. Also occasionally he takes metoprolol twice a day. He is bradycardic with heart rate in 50s. I have advised him that he should be careful with taking extra dose of metoprolol because his blood pressure is borderline. [facility] Medical History Subcutaneous mass of back Afib Annual physical exam Surgical History History of left inguinal hernia repair (~12/04/22) History of cataract surgery History of excision of mass (~2020) S/P appendectomy Family History Father No problems noted. Mother No problems noted. 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 Cognitive needs: No Hearing needs: No Vision needs: Yes Review of Systems ENT Reports dizziness Card Denies chest pain, Denies chest pain at rest, Denies chest pain with activity, Denies rapid heart rate, Denies pedal edema, Denies edema, Denies leg edema, Denies lightheadedness, Denies palpitations, Denies dyspnea, Denies dyspnea on exertion and Denies orthopnea Resp Denies cough, Denies dyspnea and Denies dyspnea on exertion GI Denies hematochezia and Denies change in stool character Musc Denies abnormal gait, Reports limited range of motion, Reports muscle cramps, Denies muscle weakness, Denies numbness, Denies radiating pain into limb, Denies stiffness and Denies tingling Neuro Denies abnormal gait, Reports dizziness, Denies numbness and Denies tingling Endo Denies palpitations Physical Exam Vital Signs: BMI result Body Mass Index 28.2 GENERAL APPEARANCE: in no acute distress, pleasant. NECK: no carotid bruit, no jugular venous distention. SKIN: no suspicious lesions, warm and dry. HEART: no murmurs, regular rate and rhythm. Bradycardic. LUNGS: clear to auscultation bilaterally. ABDOMEN: soft, nontender. EXTREMITIES: no edema. PERIPHERAL PULSES: equal. NEUROLOGIC: No gross deficits, AAO X 3 Office Procedures EKG Details: Sinus bradycardia 54 beats per minute, normal axis, incomplete right bundle-branch block, QTC 398 milliseconds. [id number], Complete Assessment & Plan Assessment & Plan (1) Afib: Comment: paroxysmal 12/2020, nl stress test 10/31 and nl echo 02/2021 Code(s): I48.91 - Unspecified atrial fibrillation Category: Medical Plan Pleasant 64 year gentleman who is here for follow-up. He has background history of paroxysmal atrial fibrillation. He has been treated with flecainide. Initially he was on pill in the pocket approach but he had multiple episodes and eventually we started him on flecainide 50 mg twice a day. He is also taking Toprol-XL 25 mg daily. At times he takes Toprol twice a day. He is noticed to be bradycardic in 50s. He also had episode where he was dizzy while being in the hot tub. I have advised him to keep himself well hydrated and be careful with the extra dose of the metoprolol. Chads Vasc is 0 and he is currently not on anticoagulation appropriately. He will see us back in 6 months. Thank you for allowing me to participate in the care of your patient. Please feel free to contact me if you have any questions. Coding Level of Care Code Est Pt Level 4 (94833) Complex EM visit Add On G2211 Diagnoses Afib I48.91 CPT Codes EKG - CPT: 15683-[id number], Complete ([id number])
== END 2024-04-17 11:15 | disposition home or self-care (01) ==
PROVIDERS: PCP Internal Medicine; Visit Provider Internal Medicine Cardiovascular Disease
DX: I48.91 Unspecified atrial fibrillation (principal)
CPT/HCPCS: 93010; 99214

== ENCOUNTER → 2024-04-17 10:45 | Outpatient (BNVA) | payer OTHER, SELFPAY | PROVIDERS: PCP Internal Medicine; Visit Provider Internal Medicine Cardiovascular Disease | DX: I48.0 Paroxysmal atrial fibrillation (principal) | CPT/HCPCS: 93005 ==

== ENCOUNTER 2024-07-17 13:33 | Outpatient (AMB) | payer OTHER, SELFPAY ==
[2024-07-17 13:34] VITALS: BP 94/66; PULSE 67; O2SAT 96; BMI 28.4
--- NOTE | 2024-07-17 13:34 | A.OFFPC_ITS ---
Vital Signs 07/17/24 13:34 Height 5 ft 11 in Weight 204 lb BMI 28.4 BP 94/66 Blood Pressure Location Rt brachial Position Sitting Pulse 67 Pulse Source Pulse Oximeter Pulse Oximetry (%) 96 Oxygen Delivery Method Room Air Intake Visit Reasons: Annual Intake Note: Pt is here today for PE. Allergies Penicillins [PCN] Allergy (Unknown, Verified 07/17/24 13:43) HIVES Medication List - Last Reconciled 07/17/24 by Pam Santos MD flecainide 50 mg PO Q12H metoprolol succinate ER 25 mg PO DAILY Tobacco use date assessed: 07/17/24 Dental Screening Dental Screen Date: 07/17/24 Did you have a dental visit in the last 12 months?: Yes Did you have a dental problem in the last 6 months where you did not have access to dental care?: No Was dental information given to patient?: Patient has dentist HPI Annual HPI Details Pt presents for PE. Pt would like to to have a skin cyst on the scalp removed. [facility] Medical History (Updated 07/17/24 @ 14:22 by Pam Santos MD) Subcutaneous mass of back Afib Annual physical exam Surgical History History of left inguinal hernia repair (~12/04/22) History of cataract surgery History of excision of mass (~2020) S/P appendectomy Family History Father No problems noted. Mother No problems noted. 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 1. Little interest or pleasure in doing things: not at all 2. Feeling down, depressed, or hopeless: not at all 3. Trouble falling or staying asleep, or sleeping too much: not at all 4. Feeling tired or having little energy: not at all 5. Poor appetite or overeating: not at all 6. Feeling bad about yourself - or that you are a failure or have let yourself or your family down: not at all 7. Trouble concentrating on things, such as reading the newspaper or watching television: not at all 8. Moving or speaking so slowly that other people could have noticed. Or the opposite - being so fidgety or restless that you have been moving around a lot more than usual: not at all 9. Thoughts that you would be better off or of hurting yourself in some way: not at all Total score: 0 Depression Screening Interpretation: Negative Depression Screening Done: Yes 11220 - PHQ-9 Billing: Yes Source: Developed by Drs. Lisandro Buckner, Flaca Woods, Benoit Toro and colleagues, with an educational al from [employer]. Thrive Questionnaire Date Thrive assessed: 07/17/24 I am a: Patient What is your living situation today?: I have a steady place to live Within the past 12 months, did the food you bought not last and you didn't have the money to get more?: Never true Within the past 12 months, did you worry whether your food would run out before you got money to buy more?: Never true Do you have trouble paying for medicines?: No Do you have trouble getting transportation to medical appointments?: No Do you have trouble paying your heating and electricity bill?: No Do you have trouble taking care of your child, family member or friend?: No Do you have trouble with day-to-day activities such as bathing, preparing meals, shopping, managing finances, etc.?: No Are you currently unemployed and looking for a job?: No Are you interested in more education?: No Please select the resources that you would like help with: None Currently or been in a relationship where the following occur: No concerns reported THRIVE Score: 0 AUDIT C Alcohol Use Questionnaire (AUDIT-C) 1. How often do you have a drink containing alcohol?: Monthly or less 2. How many drinks containing alcohol do you have on a typical day when you are drinking?: 1 or 2 3. How often do you have six or more drinks on one occasion?: Never Total Score: 1 MARY KAY-7 AMB Questionnaire MARY KAY-7 Date MARY KAY - 7 assessed: 07/17/24 Feeling nervous, anxious, or on edge: 0 = Not at all Not being able to stop or control worryin = Not at all Worrying too much about different things: 0 = Not at all Trouble relaxin = Not at all Being so restless that it is hard to sit still: 0 = Not at all Becoming easily annoyed or irritable: 0 = Not at all Feeling afraid as if something awful might happen: 0 = Not at all Total MARY KAY-7 score (0-4 normal; 5-9 mild; 10-14 moderate; 15-21 severe): 0 Source: Developed by Drs. Lisandro Buckner, Flaca Woods, Benoit Toro and colleagues, with an educational al from [employer]. MARY KAY-7 Assessment Billing MARY KAY-7 Assessment Tool: MARY KAY-7 Assessment 24581 Review of Systems Const All systems reviewed & are unremarkable except as noted in HPI and below Eyes Reports no additional complaints ENT Reports no additional complaints Card Reports no additional complaints Resp Reports no additional complaints GI Reports no additional complaints Reports no additional complaints Musc Reports no additional complaints Physical exam (Primary Care) Vital Signs: Last Vital Signs Pulse 67 07/17/24 13:34 BP 94/66 07/17/24 13:34 Pulse Ox 96 07/17/24 13:34 Oxygen Delivery Method Room Air 07/17/24 13:34 BMI result Body Mass Index 28.4 Tobacco/Smoking Status: Tobacco use Status Tobacco use date assessed 07/17/24 07/17/24 13:47 Patient Tobacco Use Status Never used Tobacco 07/17/24 13:47 e-Cigarette/Vaping Use Never Used 07/17/24 13:36 PHQ-9: PHQ-9 Score PHQ-9: Total score 0 07/17/24 13:47 Depression Screening Interpretation: Negative Thrive Assessment: Date of Thrive Assessment Date Thrive assessed 07/17/24 07/17/24 13:47 Currently or been in a relationship where the following occur: No concerns reported Const General: no acute distress HENMT Head: Yes normal to inspection and Yes scalp lesion (3 cm subcutaneous cyst nontender) Face and sinus: Yes normal facial exam Mouth: Normal oral and palatal mucosa present Throat: Yes posterior oropharynx normal Eyes General: appearance normal, both eyes and all related structures Neck Neck: Yes no lymphadenopathy and Yes supple Resp Effort & Inspection: normal respiratory effort Auscultation: clear to auscultation bilaterally Cardio Rhythm: regular rhythm Heart sounds: S1 normal heart sound present and S2 normal heart sound present GI Inspection: Yes normal to inspection Palpation (GI): Soft to palpation Percussion: Yes normal to percussion Auscultation: normal bowel sounds Coding Level of Care Code Est Pt Prev Care 40-64y(69853) Diagnoses Scalp cyst L72.9 Tinnitus H93.19 Hallux flexus of right foot M20.21 Colonoscopy refused Z53.20 Annual physical exam Z00. Afib I48.91 Additional Codes MARY KAY-7 Assessment Billing - MARY KAY-7 Assessment Tool: MARY KAY-7 Assessment 07827 ([id number]) PHQ-9 - 55353 - PHQ-9 Billing: Yes ([id number]) Assessment & Plan Assessment & Plan (1) Scalp cyst: Code(s): L72.9 - Follicular cyst of the skin and subcutaneous tissue, unspecified Category: Medical Plan: Referred to general surgeon (2) Tinnitus: Code(s): H93.19 - Tinnitus, unspecified ear Category: Medical Plan: Obtain hearing test (3) Hallux flexus of right foot: Code(s): M20.21 - Hallux rigidus, right foot Category: Medical Plan: Referred to Podiatry (4) Colonoscopy refused: Comment: 08/03 negative Cologuard , pt declined colonoscopy Code(s): Z53.20 - Procedure and treatment not carried out because of patient's decision for unspecified reasons Category: Medical Plan: Negative Cologuard (5) Annual physical exam: Code(s): Z00.00 - Encounter for general adult medical examination without abnormal findings Category: Medical Plan: Well-balanced diet regular physical activity discussed with the patient (6) Afib: Comment: paroxysmal 12/2020, nl stress test 10/31 and nl echo 02/2021 Code(s): I48.91 - Unspecified atrial fibrillation Category: Medical Plan: On daily flecainide and metoprolol follow-up with the Cardiology Orders: Orders RT home sleep study 08/16/23 G47.10 - Hypersomnia, unspecified PSA,Total (Free>4and<10) 1 Year I48.91 - Unspecified atrial fibrillation, Z00.00 - Encounter for general adult medical examination without abnormal findings UA w Microscopic 1 Year I48.91 - Unspecified atrial fibrillation, Z00.00 - Encounter for general adult medical examination without abnormal findings Complete Blood Count Auto Diff 1 Year I48. - Unspecified atrial fibrillation, Z00.00 - Encounter for general adult medical examination without abnormal findings Lipid Panel 1 Year I48.91 - Unspecified atrial fibrillation, Z00.00 - Encounter for general adult medical examination without abnormal findings [facility]. Panel Fast 1 Year I48. - Unspecified atrial fibrillation, Z00.00 - Encounter for general adult medical examination without abnormal findings Referrals General Surgery Referral L72.9 - Follicular cyst of the skin and subcutaneous tissue, unspecified Speech and Hearing Referral H93.19 - Tinnitus, unspecified ear Podiatry Referral M20.21 - Hallux rigidus, right foot Medications: New vardenafil 20 mg PO DAILY 10 tabs 0RF
== END 2024-07-17 14:58 | disposition home or self-care (01) ==
PROVIDERS: PCP Internal Medicine; Visit Provider Internal Medicine
DX: Z00.00 Encounter for general adult medical examination without abnormal findings (principal); I48.91 Unspecified atrial fibrillation; L72.9 Follicular cyst of the skin and subcutaneous tissue, unspecified; M20.21 Hallux rigidus, right foot; Z53.20 Procedure and treatment not carried out because of patient's decision for unspecified reasons; H93.19 Tinnitus, unspecified ear

== ENCOUNTER → 2024-07-17 13:33 | Outpatient (BNVA) | payer OTHER, SELFPAY | PROVIDERS: PCP Internal Medicine; Visit Provider Internal Medicine | DX: Z00.00 Encounter for general adult medical examination without abnormal findings (principal); L72.9 Follicular cyst of the skin and subcutaneous tissue, unspecified; H93.19 Tinnitus, unspecified ear; M20.21 Hallux rigidus, right foot; I48.0 Paroxysmal atrial fibrillation; Z79.899 Other long term (current) drug therapy | CPT/HCPCS: 96127 ==

== ENCOUNTER 2024-07-31 09:31 | Outpatient (AMB) | payer OTHER, SELFPAY ==
[2024-07-31 09:33] VITALS: BMI 28.7
--- NOTE | 2024-07-31 09:33 | MHC.OFFVIS ---
Vital Signs 07/31/24 09:33 Height 5 ft 11 in Weight 206 lb BMI 28.7 Intake Visit Reasons: Follicular cyst of the skin Intake Note: This patient was referred by for Follicular cyst of the skin. Pt c/o; no concerns. Unix Developer Required: No Accompanied by: Self / Same As Patient Allergies Penicillins [PCN] Allergy (Unknown, Verified 07/31/24 09:43) HIVES HPI HPI Follicular cyst of the skin: Details: 64-year-old male referred for scalp cyst. He has 2 scalp cysts which he says he has noticed for over a year. This seemed to have increased in size. He says that he has had some discomfort and wants to proceed with excision. [facility] Medical History Subcutaneous mass of back Afib Annual physical exam Surgical History History of left inguinal hernia repair (~12/04/22) History of cataract surgery History of excision of mass (~2020) S/P appendectomy Family History Father No problems noted. Mother No problems noted. 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 Cognitive needs: No Hearing needs: No Vision needs: Yes Review of Systems Const Denies chills and Denies fever(s) Card Denies chest pain, Denies dyspnea and Denies dyspnea on exertion Resp Denies cough, Denies dyspnea and Denies dyspnea on exertion GI Denies hematochezia and Denies change in bowel habits Denies hematuria and Denies difficulty urinating Musc Denies back pain and Denies limited range of motion Neuro Denies focal weakness and Denies convulsions Psych Denies depression and Denies mood swings Physical Exam Vital Signs: BMI result Body Mass Index 28.7 Const General: comfortable and no acute distress Orientation/consciousness: patient oriented x3 HEENT Other: Two well-defined scalp cysts on the parietal area about 2 cm in diameter each, noninflamed Neck Neck: Yes no lymphadenopathy Resp Auscultation: clear to auscultation bilaterally Cardio Rhythm: regular rhythm GI Palpation (GI): Soft to palpation, nontender and no guarding Neuro General: patient oriented x3 Assessment & Plan Assessment & Plan (1) Scalp cyst: Code(s): L72.9 - Follicular cyst of the skin and subcutaneous tissue, unspecified Category: Medical Plan I explained the technique of excision. I reviewed the risks including but not limited to bleeding and infections, as well as the benefits and alternatives. He understands and wants to proceed. I reviewed with him what to expect postoperatively. This will be done in the office under local anesthesia on his next visit. Coding Level of Care Code Est Pt Level 3 (03257) Diagnoses Scalp cyst L72.9
== END 2024-07-31 09:50 | disposition home or self-care (01) ==
PROVIDERS: PCP Internal Medicine; Visit Provider Surgery
DX: L72.9 Follicular cyst of the skin and subcutaneous tissue, unspecified (principal)
CPT/HCPCS: 99213

== ENCOUNTER 2024-08-07 10:37 | Outpatient (REF) | payer OTHER, SELFPAY | END 2024-08-07 10:38 | disposition home or self-care (01) | LOC: HO.SH 10:37 | PROVIDERS: Visit Provider Internal Medicine | DX: Z01.118 Encounter for examination of ears and hearing with other abnormal findings (principal); H90.A22 Sensorineural hearing loss, unilateral, left ear, with restricted hearing on the contralateral side; H90.A31 Mixed conductive and sensorineural hearing loss, unilateral, right ear with restricted hearing on the contralateral side | CPT/HCPCS: 92557; 92567 ==

== ENCOUNTER 2024-08-14 10:20 | Outpatient (REF) | payer OTHER, SELFPAY | END 2024-08-14 10:21 | disposition home or self-care (01) | LOC: HO.LNP 10:20 | PROVIDERS: PCP Internal Medicine; Visit Provider Surgery | DX: L72.11 Pilar cyst (principal) | CPT/HCPCS: 11422; 88304 ==

== ENCOUNTER 2024-08-21 10:00 | Outpatient (AMB) | payer OTHER, SELFPAY ==
--- NOTE | 2024-08-21 10:28 | MHC.OFFVIS ---
Vital Signs 08/21/24 10:29 Height 5 ft 11 in Weight 205 lb BMI 28.6 BP 100/60 Blood Pressure Location Lt brachial Position Sitting Pulse 55 Pulse Source Monitor Intake Visit Reasons: ekg Intake Note: ekg Marketing Segment Manager Required: No Accompanied by: Self / Same As Patient Allergies Penicillins [PCN] Allergy (Unknown, Verified 08/14/24 10:26) HIVES Medication List - Last Reconciled 08/21/24 by Uriel Landaverde MD flecainide 100 mg PO Q12H metoprolol succinate ER 25 mg PO DAILY vardenafil 20 mg PO DAILY HPI Comments Details: 64-year-old gentleman with paroxysmal atrial fibrillation. He had stress testing which did not show any significant abnormality. Echocardiography previously has shown normal biventricular function. 03/24/2023 he returns for follow-up. He was in the emergency department with atrial fibrillation with rapid ventricular response on 03/22/2023. It appears he reverted back to sinus rhythm. EKG 03/22/2023 showing sinus rhythm at 67 beats per minute, normal leftward axis, QTC of 395 milliseconds. He said he went to the emergency department because he was feeling very anxious and was feeling palpitations. His put her Apple watch on him and that showed atrial fibrillation with heart rate of 140s to 150s. Subsequently went to the ER where he was given flecainide and converted to sinus rhythm. He said he went home but he was feeling somewhat dizzy and off balance. Also he went out yesterday and was confused because he already filled gas but went back to the gas station. He seems forgetful to me currently and is not answering questions quickly and his is prompting him a lot. He is denying any weakness or numbness any part of the body. He is currently taking Toprol XL 25 mg which he started last night. He is saying he was not taking it previously. His blood pressure manually is 110/60. 04/17/2024: He is here for follow-up. Denying any chest pain or shortness of breath. No palpitations. Recently was in the hot tub and started sweating and was dizzy. He is saying he does not drink lot of water. He said he was dizzy all day. Also occasionally he takes metoprolol twice a day. He is bradycardic with heart rate in 50s. I have advised him that he should be careful with taking extra dose of metoprolol because his blood pressure is borderline. 08/21/2024: Patient was seen in the office because he came for EKG after increasing flecainide dose to 100 mg twice a day. He recently called us because he was getting frequent episodes of palpitations and was noticing on his watch that his heart rate is fast. He was advised to increase the flecainide to 100 mg twice a day. He did that last week and since then every other day he has been getting some palpitations. Previous to that he was getting them daily. He occasionally drinks but he is not a heavy drinker. He is saying he has stopped using soda with caffeine and drinks diet Coke without caffeine but I searched diet Coke has approximately 46 mg of caffeine. I have advised him to move away from all these soda and adjusting water. He is going on a cruise to be in for 8 days. [facility] Medical History Subcutaneous mass of back Afib Annual physical exam Surgical History History of removal of cyst (~08/14/24) History of left inguinal hernia repair (~12/04/22) History of cataract surgery History of excision of mass (~2020) S/P appendectomy Family History Father No problems noted. Mother No problems noted. 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 Cognitive needs: No Hearing needs: No Vision needs: Yes Review of Systems Const Denies chills, Denies fatigue, Denies fever(s), Denies frequent falls, Denies weakness, Denies weight gain and Denies weight loss ENT Denies dizziness Card Denies chest pain, Denies leg edema, Denies lightheadedness, Denies palpitations, Denies dyspnea and Denies dyspnea on exertion Resp Denies cough, Denies dyspnea and Denies dyspnea on exertion GI Denies hematochezia Musc Denies abnormal gait, Denies muscle weakness, Denies numbness, Denies radiating pain into limb and Denies tingling Neuro Denies abnormal gait, Denies dizziness, Denies frequent falls, Denies numbness, Denies tingling and Denies weakness Endo Denies fatigue and Denies palpitations Physical Exam Vital Signs: Last Vital Signs Pulse 55 08/21/24 10:29 BP 100/60 08/21/24 10:29 BMI result Body Mass Index 28.6 GENERAL APPEARANCE: in no acute distress, pleasant. NECK: no carotid bruit, no jugular venous distention. SKIN: no suspicious lesions, warm and dry. HEART: no murmurs, regular rate and rhythm. Bradycardic. LUNGS: clear to auscultation bilaterally. ABDOMEN: soft, nontender. EXTREMITIES: no edema. PERIPHERAL PULSES: equal. NEUROLOGIC: No gross deficits, AAO X 3 Office Procedures EKG Details: Limb leads reversal. Sinus bradycardia 55 beats per minute, NH interval 180 milliseconds, QTC 405 milliseconds. QRS duration 116 millisecond. [id number], Complete Assessment & Plan Assessment & Plan (1) Palpitation: Code(s): R00.2 - Palpitations Category: Medical (2) Afib: Comment: paroxysmal 12/2020, nl stress test 10/31 and nl echo 02/2021 Code(s): I48.91 - Unspecified atrial fibrillation Category: Medical Plan [age] year gentleman with paroxysmal atrial fibrillation. More recently has had more episodes and he was advised to increase the flecainide to 100 mg twice a day. His CHADS-VASc is 0 and he is currently not on anticoagulation. Continue metoprolol 25 mg daily. I have advised him to remove all soda from his diet and just drink water. He plans to go on a cruise to [employer]. I have advised him not to drink alcohol and stay away from soda and hydrate himself. If he got any significant issues he may call us to discuss. I have advised him not to take extra flecainide there. Thank you for allowing me to participate in the care of your patient. Please feel free to contact me if you have any questions. Coding Level of Care Code Est Pt Level 4 (86225) Diagnoses Palpitation R00.2 Afib I48.91 CPT Codes EKG - CPT: 11044-[id number], Complete ([id number])
[2024-08-21 10:29] VITALS: BP 100/60; PULSE 55; BMI 28.6
== END 2024-08-21 11:07 | disposition home or self-care (01) ==
PROVIDERS: PCP Internal Medicine; Visit Provider Internal Medicine Cardiovascular Disease
DX: R00.2 Palpitations (principal); I48.91 Unspecified atrial fibrillation
CPT/HCPCS: 93010; 99214

== ENCOUNTER → 2024-08-21 10:00 | Outpatient (BNVA) | payer OTHER, SELFPAY | PROVIDERS: PCP Internal Medicine; Visit Provider Internal Medicine Cardiovascular Disease | DX: I48.0 Paroxysmal atrial fibrillation (principal); R00.2 Palpitations | CPT/HCPCS: 93005 ==

== ENCOUNTER → 2024-08-24 14:39 | Outpatient (BNVA) | payer OTHER, SELFPAY | PROVIDERS: PCP Internal Medicine; Visit Provider Surgery | DX: Z48.02 Encounter for removal of sutures (principal) | CPT/HCPCS: 99211 ==

== ENCOUNTER 2024-10-23 10:07 | Outpatient (AMB) | payer OTHER, SELFPAY ==
--- NOTE | 2024-10-23 10:16 | A.OFFVIS_ITS ---
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 He had stress testing which did not show any significant abnormality. Echocardiography previously has shown normal biventricular function. 03/24/2023 he returns for follow-up. He was in the emergency department with atrial fibrillation with rapid ventricular response on 03/22/2023. It appears he reverted back to sinus rhythm. EKG 03/22/2023 showing sinus rhythm at 67 beats per minute, normal leftward axis, QTC of 395 milliseconds. He said he went to the emergency department because he was feeling very anxious and was feeling palpitations. His put her Apple watch on him and that showed atrial fibrillation with heart rate of 140s to 150s. Subsequently went to the ER where he was given flecainide and converted to sinus rhythm. He said he went home but he was feeling somewhat dizzy and off balance. Also he went out yesterday and was confused because he already filled gas but went back to the gas station. He seems forgetful to me currently and is not answering questions quickly and his is prompting him a lot. He is denying any weakness or numbness any part of the body. He is currently taking Toprol XL 25 mg which he started last night. He is saying he was not taking it previously. His blood pressure manually is 110/60. 04/17/2024: He is here for follow-up. Denying any chest pain or shortness of breath. No palpitations. Recently was in the hot tub and started sweating and was dizzy. He is saying he does not drink lot of water. He said he was dizzy all day. Also occasionally he takes metoprolol twice a day. He is bradycardic with heart rate in 50s. I have advised him that he should be careful with taking extra dose of metoprolol because his blood pressure is borderline. 08/21/2024: Patient was seen in the office because he came for EKG after increasing flecainide dose to 100 mg twice a day. He recently called us because he was getting frequent episodes of palpitations and was noticing on his watch that his heart rate is fast. He was advised to increase the flecainide to 100 mg twice a day. He did that last week and since then every other day he has been getting some palpitations. Previous to that he was getting them daily. He occasionally drinks but he is not a heavy drinker. He is saying he has stopped using soda with caffeine and drinks diet Coke without caffeine but I searched diet Coke has approximately 46 mg of caffeine. I have advised him to move away from all these soda and adjusting water. He is going on a cruise to be in for 8 days. 10/23/2024: He returns for follow-up. He has no palpitations. No chest discomfort shortness of breath. EKGs showing sinus bradycardia. He is taking flecainide 100 mg twice a day and metoprolol succinate 25 mg daily. We had discussion in August about stopping alcohol and soda/caffeine. He has done that and is doing well. We also discussed about ablation but he has not been interested in that. [facility] Medical History Subcutaneous mass of back Afib Annual physical exam Surgical History History of removal of cyst (~08/14/24) History of left inguinal hernia repair (~12/04/22) History of cataract surgery History of excision of mass (~2020) S/P appendectomy Family History Father No problems noted. Mother No problems noted. 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 Cognitive needs: No Hearing needs: No Vision needs: Yes Review of Systems Const Denies chills, Denies fatigue, Denies fever(s), Denies frequent falls, Denies weakness, Denies weight gain and Denies weight loss ENT Denies dizziness Card Denies chest pain, Denies leg edema, Denies lightheadedness, Denies palpitations, Denies dyspnea and Denies dyspnea on exertion Resp Denies cough, Denies dyspnea and Denies dyspnea on exertion GI Denies hematochezia Musc Denies abnormal gait, Denies muscle weakness, Denies numbness, Denies radiating pain into limb and Denies tingling Neuro Denies abnormal gait, Denies dizziness, Denies frequent falls, Denies numbness, Denies tingling and Denies weakness Endo Denies fatigue and Denies palpitations Physical Exam Vital Signs: Last Vital Signs Pulse 53 10/23/24 10:17 BP 100/64 10/23/24 10:17 BMI result Body Mass Index 28.7 GENERAL APPEARANCE: in no acute distress, pleasant. NECK: no carotid bruit, no jugular venous distention. SKIN: no suspicious lesions, warm and dry. HEART: no murmurs, regular rate and rhythm. Bradycardic. LUNGS: clear to auscultation bilaterally. ABDOMEN: soft, nontender. EXTREMITIES: no edema. PERIPHERAL PULSES: equal. NEUROLOGIC: No gross deficits, AAO X 3 Office Procedures EKG Details: Sinus bradycardia 53 beats per minute, incomplete right bundle-branch block, nonspecific T-wave changes, QTC 392 milliseconds. [id number], Complete Assessment & Plan Assessment & Plan (1) Palpitation: Code(s): R00.2 - Palpitations Category: Medical (2) Afib: Comment: paroxysmal 12/2020, nl stress test 10/31 and nl echo 02/2021 Code(s): I48.91 - Unspecified atrial fibrillation Category: Medical Plan [age] year gentleman with paroxysmal atrial fibrillation. He is currently stable on flecainide and metoprolol. His CHADS-VASc is 0 and is currently not on anticoagulation. He was drinking soda frequently and I think the caffeine may have played some role in the atrial fibrillation episodes. He is saying he has stopped drinking soda, caffeine and alcohol. Clinically stable at this point. We have discussed about ablation in the past but he does not wish to pursue that. If he had frequent episodes then we can revisit that. Follow-up with us in 4 months. Thank you for allowing me to participate in the care of your patient. Please feel free to contact me if you have any questions. Coding Level of Care Code Est Pt Level 4 (28210) Diagnoses Palpitation R00.2 Afib I48.91 CPT Codes EKG - CPT: 57674-[id number], Complete ([id number])
[2024-10-23 10:17] VITALS: BP 100/64; PULSE 53; BMI 28.7
--- OUTSIDE RECORDS SUMMARY | 2024-10-23 11:29 | XMS_ITS | Clinical Summary ---
Author Organization [facility] Address [address] [place] [address] Care Team Providers Care Pigment Furnace Tender Name Role Phone Pam Santos MD Primary Care Provider [phone] Allergies Active Allergy Reactions Criticality Noted Date Comments Penicillins Unknown/Patient and Family Unable to Define Medium 10/02/2024 Medications Medication Sig Dispensed Refills Start Date End Date Status flecainide (TAMBOCOR) 50 MG tablet 2 tablets by Mouth/Oral Cavity route every 12 hours. 08/24/2024 Active metoPROLOL SUCCINATE (TOPROL-XL) 25 MG 24 hr tablet Take 25 mg by mouth. 07/28/2024 Active vardenafil (LEVITRA) 20 MG tablet Take 20 mg by mouth. 07/17/2024 Active fluticasone (FloNASE) 50 mcg/spray nasal sprayIndications:Eusta chian tube dysfunction, right 2 sprays into each nostril 2 times a day. 1 each 3 10/02/2024 Active Active Problems No known active problems Encounters Date Type Department Care Team Description 10/02/2024 9:15 AM EDT Clinical Support [facility] [address] [address] Cristiano Simental MD Sensorineural hearing loss (SNHL) of right ear with restricted hearing of left ear (Primary Dx); Tinnitus of right ear; Eustachian tube dysfunction, right 09/27/2024 Scanned Document [facility] [address] [address] Cristiano Simental MD 08/30/2024 Orders Only [facility] [address] [place] [address] Pam Santos MD from Last 3 Months Social History Tobacco Use Types Packs/Day Years Used Date Smoking Tobacco: Never Passive Smoke Exposure: Never Smokeless Tobacco: Never Tobacco Cessation:Counseling Given: Not Answered Alcohol Use Standard Drinks/Week Comments Yes 0 (1 standard drink = 0.6 oz pur e alcohol) Sex and Gender Information Value Date Recorded Sex Assigned at Male 09/06/2024 8:29 AM EST Gender Identity Male 09/06/2024 8:29 AM EST Sexual Orientation Heterosexual (straight) 09/06 8:29 AM EST Last Filed Vital Signs Vital Sign Reading Time Taken Comments Blood Pressure - - Pulse - - Temperature - - Respiratory Rate - - Oxygen Saturation - - Inhaled Oxygen Concentration - - Weight 92.5 kg (204 lb) 10/02/2024 9:16 AM EDT Height 180.3 cm (5' 11 ) 10/02/2024 9:16 AM EDT Body Mass Index 28.45 10/02/2024 9:16 AM EDT Plan of Treatment Upcoming Encounters Date Type Department Care Team (Late st Contact Info) Description 11/27/2024 9:30 AM EDT Office Visit [facility] [address], [place] [address] Cristiano Simental MD [address] [place] [phone] Health Maintenance Due Date Last Done Comments Hepatitis C Virus Screening 1962 HIV Screening 1975 DTaP/Tdap/Td Vaccines (1 - Tdap) 1981 Colonoscopy 2007 Pneumococcal Vaccines 50+ (1 of 1 - PCV) 2012 Zoster (Shingles) Vaccine (1 of 2) 2012 Influenza Vaccine 02/10/2024 COVID-19 Vaccine ( - 2023-2 5 season) 2024 RSV Vaccine 60 years and old er and Patients (1 - 1-dose 75+ series) 2037 Hepatitis B Vaccines Aged Out No long er eligible based on patient's age to complete this topic Procedures Procedure Name Priority Date/Time Associated Diagnosis Comments AMB REFERRAL TO ENT Routine 08/21/2024 12:12 PM EST from Last 3 Months Results * Amb Referral to ENT (08/21/2024 12:12 PM EST) Pam Santos MD OUTPATIENT REFERRAL ORDERABLES from Last 3 Months Care Teams Pigment Furnace Tender Relationship Specialty Start Date End Date Pam Santos MD [address] [place] [address] PCP - General 10/02/24
--- OUTSIDE RECORDS SUMMARY | 2024-10-23 11:29 | XMS_ITS | Encounter Summary ---
Author Organization [facility] Address [address] [place] [address] Care Team Providers Care Sewing Demonstrator Name Role Phone Pam Santos MD Primary Care Provider [phone] Encounter Details Date Type Department Care Team (Late st Contact Info) Description 09/27/2024 Scanned Document [facility] [address] [id number] Cristiano Simental MD [address] [place] [address] [phone] Social History Tobacco Use Types Packs/Day Years Used Date Smoking Tobacco: Never Assessed Sex and Gender Information Value Date Recorded Sex Assigned at Male 09/06/2024 8:29 AM EST Gender Identity Male 09/06/2024 8:29 AM EST Sexual Orientation Heterosexual (straight) 09/06 8:29 AM EST documented as of this encounter Plan of Treatment Upcoming Encounters Date Type Department Care Team (Late st Contact Info) Description 11/27/2024 9:30 AM EDT Office Visit [facility] [address] [address] Cristiano Simental MD [address] [place] [phone] documented as of this encounter Visit Diagnoses Not on filedocumented in this encounter Care Teams Sewing Demonstrator Relationship Specialty Start Date End Date Pam Santos MD [address] [place] [address] PCP - General 10/02/24 documented as of this encounter
--- OUTSIDE RECORDS SUMMARY | 2024-10-23 11:29 | XMS_ITS ---
Author Name [facility] Organization Unknown History of Medication Use Medication Directions Dispensed Refills Start Date End Date Stat us metoPROLOL SUCCINATE (TOPROL-XL) 25 MG 24 hr tablet Take 25 mg by mouth. 07/28/2024 active flecainide (TAMBOCOR) 50 MG tablet 2 tablets by Mouth/Oral Cavity route every 12 hours. 08/24/2024 active fluticasone (FloNASE) 50 mcg/spray nasal spray 2 sprays into each nostril 2 times a day. 10/02/2024 active vardenafil (LEVITRA) 20 MG tablet Take 20 mg by mouth. 07/17/2024 active Problems Problem Status Onset Date Problem Type Date of Resolution Source Eustachian tube dysfunction, right active EncounterDiagnosisAct [facility] Tinnitus of right ear active EncounterDiagnosis Act [facility] Sensorineural hearing loss (SNHL) of right ear with restricted hearing of left ear active EncounterDiagnosisAct [facility] Encounters Encounter Type Encounter Reason Primary Diagnosis Location Date Ambulatory Hearing Loss Hearing Loss [facility] 10/02/2024 Care Team Organization Name Specialty Phone Email Start Date End [facility] 10/10/2024 [facility] Pam Santos Primary Care 10/02/2024 [facility] 08/21/2024
== END 2024-10-23 10:36 | disposition home or self-care (01) ==
LOC: HO.HCS 10:09
PROVIDERS: PCP Internal Medicine; Visit Provider Internal Medicine Cardiovascular Disease
DX: R00.2 Palpitations (principal); I48.91 Unspecified atrial fibrillation
CPT/HCPCS: 93010; 99214

== ENCOUNTER → 2024-10-23 10:07 | Outpatient (BNVA) | payer OTHER, SELFPAY | PROVIDERS: PCP Internal Medicine; Visit Provider Internal Medicine Cardiovascular Disease | DX: R00.2 Palpitations (principal); I48.91 Unspecified atrial fibrillation | CPT/HCPCS: 93005 ==

== ENCOUNTER 2024-12-11 13:27 | Outpatient (AMB) | payer OTHER, SELFPAY ==
--- NOTE | 2024-12-11 13:36 | AM.OFFWIN_ITS ---
Intake Vital Signs 12/11/24 13:38 Weight 204 lb BP 110/72 Blood Pressure Location Lt brachial Position Sitting Pulse 79 Pulse Source Pulse Oximeter Temp 98.1 F Temp Source Oral Pulse Oximetry (%) 93 Oxygen Delivery Method Room Air Intake Visit Reasons: EP Dry cough/wheezing, low energy Intake Note: Patient here for dry cough, wheezing and fatigue that has been present for almost 2 weeks. Patient Tobacco Use Status: Never used Tobacco Allergies Penicillins [PCN] Allergy (Unknown, Verified 12/11/24 13:38) HIVES Do you need a note to return to daycare/school/sports/work: No HPI HPI Comments 2 History of Present Illness Details History of Present Illness The patient is a 64-year-old male presenting with a wheezing cough. Symptoms began about a week and a half ago and are primarily characterized by persistent coughing with wheezing, which is exacerbated in a supine position, causing him to prop himself up for relief. This extensive coughing has subsequently led to chest pain. He has been trying to get phlegm up. He reports a history of asthma and denies any smoking history. The patient has attempted at-home management with ibuprofen and NyQuil, which has offered minimal relief. There are no current sick contacts, although his daughter has a cough. The patient actively attempts to expectorate phlegm, with variable success, and has not used a nebulizer before. There was discussion of possibly trying albuterol to alleviate respiratory discomfort that his had. 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 He denies CP, abd pain, n/v/d, VINCENT, ear pain, sore throat, rashes, smoking, or sick contacts. Physical Exam General: Cooperative, healthy appearing, comfortable, no acute distress and well developed Orientation: Patient oriented x3 Limitations: No limitations Head: Normal to inspection Ears: Hearing grossly normal bilaterally Nose: Normal external nose present Face and sinus: Normal facial exam Eyes: Appearance normal, both eyes and all related structures Neck: Normal visual inspection and Yes full ROM Respiratory: Wheezing and congestion noted, patient reports shortness of breath. Clear to auscultation bilaterally Cardiovascular: Regular rate and rhythm. Normal S1 and S2 GI: Normal to inspection. Soft to palpation and nontender Skin: No rashes or lesions noted Neuro: Patient oriented x3 Extremities: Normal to inspection Patient was informed and verbally consented to the use of an ambient scribe for clinic note documentation during this visit. [facility] Medical History Subcutaneous mass of back Afib Annual physical exam Surgical History History of removal of cyst (~08/14/24) History of left inguinal hernia repair (~12/04/22) History of cataract surgery History of excision of mass (~2020) S/P appendectomy Family History Father No problems noted. Mother No problems noted. 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 Cognitive needs: No Hearing needs: No Vision needs: Yes Review of Systems Const All systems reviewed & are unremarkable except as noted in HPI and below Physical Exam Vital Signs: Last Vital Signs Temp 98.1 F 12/11/24 13:38 Pulse 79 12/11/24 13:38 BP 110/72 12/11/24 13:38 Pulse Ox 93 12/11/24 13:38 Oxygen Delivery Method Room Air 12/11/24 13:38 Office Procedures Nebulizer Treatment Nebulizer Treatment [id number]/[id number] RX initial, or Nebulizer Subsequent Treatment Office Meds albuterol sulfate 2.5 mg/3 mL (0.083 %) solution for nebulization Performing Provider: Carly Newell PA-C Performing Location: [facility] [place] [facility] Administered by: Carly Newell PA-C on 12/11/24 14:15 Dose Route Admin Location Dispensed Lot Number Expiration Date [place] Supervisor [place] 2.5 mg inhalation neb 3 mL [id number] 09/08/25 95803-429-36 [employer] Comments: duoneb given Assessment & Plan Assessment & Plan (1) Cough: Code(s): R05.9 - Cough, unspecified Plan Most likely asthma exacerbation vs URI vs bronchitis vs covid vs flu Plan I will proceed with an albuterol breathing treatment via nebulizer to manage the wheezing. The patient will be re-evaluated post-treatment to assess i mprovement. Continuous bronchodilator therapy may be considered based on the response to the nebulizer. Additionally, I plan to prescribe a cough suppressant and prednisone burst to manage the cough. The patient understands and agrees with this approach. Orders: Orders AMB Nebulizer Treatment Today R05.9 - Cough, unspecified Medications: New albuterol sulfate 90 mcg/actuation 2 puffs inhalation Q6H PRN 8.5 grams 0RF shortness of breath or wheezing or cough prednisone 40 mg (2 x 20 mg) PO DAILY 5 days 10 tabs 0RF benzonatate 100 mg PO bid-tid 7 days PRN 21 caps 0RF Cough Coding Level of Care Code Est Pt Level 4 (27388) Diagnoses Cough R05.9 CPT Codes Nebulizer Treatment - Nebulizer Treatment, initial or subsequent: 03224- Nebulizer/MDI RX initial, or Nebulizer Subsequent Treatment ([id number])
[2024-12-11 13:38] VITALS: BP 110/72; PULSE 79; TEMP 36.7; O2SAT 93
--- OUTSIDE RECORDS SUMMARY | 2024-12-11 14:32 | XMS_ITS | Encounter Summary ---
Author Organization [facility] Address [address] [place] [id number] Care Team Providers Care Gate Attendant Name Role Phone Pam Santos MD Primary Care Provider [phone] Encounter Details Date Type Department Care Team (Late st Contact Info) Description 09/27/2024 Scanned Document [facility] [place] [address] [facility] [place] [address] Cristiano Simental MD [address] [place] [address] [phone] Social History Tobacco Use Types Packs/Day Years Used Date Smoking Tobacco: Never Assessed Sex and Gender Information Value Date Recorded Sex Assigned at Male 09/06/2024 8:29 AM EST Legal Sex Male 2:47 PM EST Gender Identity Male 09/06/2024 8:29 AM EST Sexual Orientation Heterosexual (straight) 09/06 8:29 AM EST documented as of this encounter Plan of Treatment Not on file documented as of this encounter Visit Diagnoses Not on filedocumented in this encounter Care Teams Gate Attendant Relationship Specialty Start Date End Date Pam Santos MD [address] [place] [address] PCP - General 10/02/24 documented as of this encounter
== END 2024-12-11 14:47 | disposition home or self-care (01) ==
PROVIDERS: PCP Internal Medicine; Visit Provider Physician Assistant Medical
DX: R05.9 Cough, unspecified (principal)

== ENCOUNTER → 2024-12-11 13:27 | Outpatient (BNVA) | payer OTHER, SELFPAY | PROVIDERS: PCP Internal Medicine; Visit Provider Physician Assistant Medical | DX: R05.3 Chronic cough (principal) | CPT/HCPCS: 94640 ==

== ENCOUNTER 2025-03-05 08:57 | Outpatient (AMB) | payer OTHER, SELFPAY ==
--- NOTE | 2025-03-05 09:12 | MHC.OFFVIS ---
Vital Signs 03/05/25 09:13 Height 5 ft 11 in Weight 201 lb 8.04 oz BMI 28.1 BP 120/62 Blood Pressure Location Lt brachial Position Sitting Pulse 51 Pulse Source Monitor Intake Visit Reasons: 4 mth f/up Intake Note: 4 mth f/up Career Technical Education Instructor Required: No Accompanied by: Self / Same As Patient Allergies Penicillins (PCN) Allergy (Unknown, Verified 12/11/24 13:38) HIVES Medication List - Last Reconciled 03/05/25 by Uriel Landaverde MD albuterol sulfate 90 mcg/actuation 2 puffs inhalation Q6H PRN benzonatate 100 mg PO bid-tid PRN 7 days flecainide 100 mg (2 x 50 mg) PO Q12H metoprolol succinate ER 25 mg PO DAILY prednisone 40 mg (2 x 20 mg) PO DAILY 5 days vardenafil 20 mg PO DAILY HPI Comments Details: 64-year-old gentleman with paroxysmal atrial fibrillation. He had stress testing which did not show any significant abnormality. Echocardiography previously has shown normal biventricular function. 03/24/2023 he returns for follow-up. He was in the emergency department with atrial fibrillation with rapid ventricular response on 03/22/2023. It appears he reverted back to sinus rhythm. EKG 03/22/2023 showing sinus rhythm at 67 beats per minute, normal leftward axis, QTC of 395 milliseconds. He said he went to the emergency department because he was feeling very anxious and was feeling palpitations. His put her Apple watch on him and that showed atrial fibrillation with heart rate of 140s to 150s. Subsequently went to the ER where he was given flecainide and converted to sinus rhythm. He said he went home but he was feeling somewhat dizzy and off balance. Also he went out yesterday and was confused because he already filled gas but went back to the gas station. He seems forgetful to me currently and is not answering questions quickly and his is prompting him a lot. He is denying any weakness or numbness any part of the body. He is currently taking Toprol XL 25 mg which he started last night. He is saying he was not taking it previously. His blood pressure manually is 110/60. 04/17/2024: He is here for follow-up. Denying any chest pain or shortness of breath. No palpitations. Recently was in the hot tub and started sweating and was dizzy. He is saying he does not drink lot of water. He said he was dizzy all day. Also occasionally he takes metoprolol twice a day. He is bradycardic with heart rate in 50s. I have advised him that he should be careful with taking extra dose of metoprolol because his blood pressure is borderline. 08/21/2024: Patient was seen in the office because he came for EKG after increasing flecainide dose to 100 mg twice a day. He recently called us because he was getting frequent episodes of palpitations and was noticing on his watch that his heart rate is fast. He was advised to increase the flecainide to 100 mg twice a day. He did that last week and since then every other day he has been getting some palpitations. Previous to that he was getting them daily. He occasionally drinks but he is not a heavy drinker. He is saying he has stopped using soda with caffeine and drinks diet Coke without caffeine but I searched diet Coke has approximately 46 mg of caffeine. I have advised him to move away from all these soda and adjusting water. He is going on a cruise to be in for 8 days. 10/23/2024: He returns for follow-up. He has no palpitations. No chest discomfort shortness of breath. EKGs showing sinus bradycardia. He is taking flecainide 100 mg twice a day and metoprolol succinate 25 mg daily. We had discussion in August about stopping alcohol and soda/caffeine. He has done that and is doing well. We also discussed about ablation but he has not been interested in that. 03/05/25: He is here for follow-up. He has been doing well. He is taking his flecainide and metoprolol succinate 25 mg daily. He is saying that he has been doing very well. [facility] Medical History Subcutaneous mass of back Afib Annual physical exam Surgical History History of removal of cyst (~08/14/24) History of left inguinal hernia repair (~12/04/22) History of cataract surgery History of excision of mass (~2020) S/P appendectomy Family History Father No problems noted. Mother No problems noted. 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 Cognitive needs: No Hearing needs: No Vision needs: Yes Review of Systems Const Denies chills, Denies fatigue, Denies fever(s), Denies frequent falls, Denies weakness, Denies weight gain and Denies weight loss ENT Denies dizziness Card Denies chest pain, Denies leg edema, Denies lightheadedness, Denies palpitations, Denies dyspnea and Denies dyspnea on exertion Resp Denies cough, Denies dyspnea and Denies dyspnea on exertion GI Denies hematochezia Musc Denies abnormal gait, Denies muscle weakness, Denies numbness, Denies radiating pain into limb and Denies tingling Neuro Denies abnormal gait, Denies dizziness, Denies frequent falls, Denies numbness, Denies tingling and Denies weakness Endo Denies fatigue and Denies palpitations Physical Exam Vital Signs: Last Vital Signs Pulse 51 03/05/25 09:13 BP 120/62 03/05/25 09:13 BMI result Body Mass Index 28.1 GENERAL APPEARANCE: in no acute distress, pleasant. NECK: no carotid bruit, no jugular venous distention. SKIN: no suspicious lesions, warm and dry. HEART: no murmurs, regular rate and rhythm. Bradycardic. LUNGS: clear to auscultation bilaterally. ABDOMEN: soft, nontender. EXTREMITIES: no edema. PERIPHERAL PULSES: equal. NEUROLOGIC: No gross deficits, AAO X 3 Office Procedures EKG Details: Sinus bradycardia 51 beats per minute, normal axis, poor R-wave progression, QTC 385 milliseconds. 12219-[id number], Complete Assessment & Plan Assessment & Plan (1) Afib: Comment: paroxysmal 12/2020, nl stress test 10/31 and nl echo 02/2021 Code(s): I48.91 - Unspecified atrial fibrillation Category: Medical Plan Pleasant 64 year gentleman who is here for follow-up. He has background history of paroxysmal atrial fibrillation. He is currently on flecainide and metoprolol and has been in sinus rhythm. He is denying any significant symptoms on follow-up. Currently not on anticoagulation due to low CHADS-VASc score. We discussed about ablation as it alternative management strategy. He will think about it and will get back to us. We will revisit it on his follow-up in 4 months otherwise. Thank you for allowing me to participate in the care of your patient. Please feel free to contact me if you have any questions. Coding Level of Care Code Est Pt Level 4 (75884) Diagnoses Afib I48.91 CPT Codes EKG - CPT: 75778-[id number], Complete ([id number])
[2025-03-05 09:13] VITALS: BP 120/62; PULSE 51; BMI 28.1
--- OUTSIDE RECORDS SUMMARY | 2025-03-05 09:38 | XMS_ITS | Encounter Summary ---
Author Organization [facility] Address [address] [place] [address] Care Team Providers Care Automotive Glass Mechanic Name Role Phone Pam Santos MD Primary Care Provider [phone] Encounter Details Date Type Department Care Team (Late st Contact Info) Description 09/27/2024 Scanned Document [facility] [place] [address] [facility], [place] [address] Cristiano Simental MD [address] [place] [phone] Social History Tobacco Use Types Packs/Day Years [...] on filedocumented in this encounter Care Teams Automotive Glass Mechanic Relationship Specialty Start Date End Date Pam Santos MD [address] [place] [address] PCP - General 10/02/24 documented as of this encounter
--- OUTSIDE RECORDS SUMMARY | 2025-03-05 09:38 | XMS_ITS ---
Author Name [facility] Organization Unknown History of Medication Use Medication Directions Dispensed Refills Start Date End Date Stat us fluticasone (FloNASE) 50 mcg/spray nasal spray INSTILL 2 SPRAYS INTO EACH NOSTRIL 2 TIMES A DAY. 12/29/2024 active fluticasone (FloNASE) 50 mcg/spray nasal spray 2 sprays into each nostril 2 times a day. 10/02/2024 active flecainide (TAMBOCOR) 50 MG tablet 2 tablets by Mouth/Oral Cavity route every 12 hours. 08/24/2024 active metoPROLOL SUCCINATE (TOPROL-XL) 25 MG 24 hr tablet Take 25 mg by mouth. 07/28/2024 active vardenafil (LEVITRA) 20 MG tablet Take 20 mg by mouth. 07/17/2024 active Allergies Allergen Reaction Severity Comment Documented Date Source Statu s PENICILLINS UNKNOWN/PATIENT AND FAMILY UNABLE TO DEFINE 10/02/2024 [facility] active Problems Problem Status Onset Date Problem Type Date of Resoluti on Source Eustachian tube dysfunction, right active EncounterDiagnosisAct [facility] Encounters Encounter Type Encounter Reason Primary Diagnosis Location Date Ambulatory Hearing Loss Hearing Loss [employer] 10/02/2024 Care Team Organization Name Specialty Phone Email Start Date End [facility] 10/10/2024 11/02/2024 [facility] Pam Santos Primary [facility] 10/02/2024 [facility] 08/21/2024
== END 2025-03-05 09:43 | disposition home or self-care (01) ==
LOC: HO.HCS 08:58
PROVIDERS: PCP Internal Medicine; Visit Provider Internal Medicine Cardiovascular Disease
DX: I48.91 Unspecified atrial fibrillation (principal)
CPT/HCPCS: 93010; 99214

== ENCOUNTER → 2025-03-05 08:57 | Outpatient (BNVA) | payer OTHER, SELFPAY | PROVIDERS: PCP Internal Medicine; Visit Provider Internal Medicine Cardiovascular Disease | DX: I48.91 Unspecified atrial fibrillation (principal) | CPT/HCPCS: 93005 ==

== ENCOUNTER 2025-03-28 08:48 | Outpatient (AMB) | payer OTHER, SELFPAY ==
[2025-03-28 08:52] VITALS: BP 100/66; PULSE 63; RESP 18; TEMP 36.9; O2SAT 97; BMI 28.7
--- NOTE | 2025-03-28 08:52 | MHC.PC.OV ---
Vital Signs 03/28/25 08:52 Height 5 ft 11 in Weight 206 lb BMI 28.7 BP 100/66 Blood Pressure Location Lt brachial Position Sitting Respiration 18 Pulse 63 Pulse Source Pulse Oximeter Temp 98.4 F Temp Source Oral Pulse Oximetry (%) 97 Oxygen Delivery Method Room Air Intake Visit Reasons: Pre op foot surgery 04/06/25 Intake Note: Pt is here today for Pre op visit. Pt is having R foot surgery on 04/06/25. Allergies Penicillins (PCN) Allergy (Unknown, Verified 03/28/25 08:52) HIVES Medication List - Last Reconciled 03/28/25 by Pam Santos MD albuterol sulfate 90 mcg/actuation 2 puffs inhalation Q6H PRN flecainide 100 mg (2 x 50 mg) PO Q12H metoprolol succinate ER 25 mg PO DAILY vardenafil 20 mg PO DAILY Tobacco use date assessed: 03/28/25 Dental Screening Dental Screen Date: 07/17/24 HPI Pre op foot surgery 04/06/25 HPI Details Patient presents for the preop for right foot hallux valgus surgery. Paroxysmal AFib is controlled on flecainide and metoprolol and patient is not anticoagulated because of low CHADS-vas score. She is established with Cardiology. [facility] Medical History (Updated 03/28/25 @ 09:49 by Pam Santos MD) Subcutaneous mass of back Afib Annual physical exam Surgical History History of removal of cyst (~08/14/24) History of left inguinal hernia repair (~12/04/22) History of cataract surgery History of excision of mass (~2020) S/P appendectomy Family History Father No problems noted. Mother No problems noted. 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 1. Little interest or pleasure in doing things: not at all 2. Feeling down, depressed, or hopeless: not at all 3. Trouble falling or staying asleep, or sleeping too much: not at all 4. Feeling tired or having little energy: not at all 5. Poor appetite or overeating: not at all 6. Feeling bad about yourself - or that you are a failure or have let yourself or your family down: not at all 7. Trouble concentrating on things, such as reading the newspaper or watching television: not at all 8. Moving or speaking so slowly that other people could have noticed. Or the opposite - being so fidgety or restless that you have been moving around a lot more than usual: not at all 9. Thoughts that you would be better off or of hurting yourself in some way: not at all Total score: 0 Depression Screening Interpretation: Negative Depression Screening Done: Yes Source: Developed by Drs. Lisandro Buckner, Flaca Woods, Benoit Toro and colleagues, with an educational al from [employer]. Thrive Questionnaire Date Thrive assessed: 07/17/24 I am a: Patient What is your living situation today?: I have a steady place to live Within the past 12 months, did the food you bought not last and you didn't have the money to get more?: Never true Within the past 12 months, did you worry whether your food would run out before you got money to buy more?: Never true Do you have trouble paying for medicines?: No Do you have trouble getting transportation to medical appointments?: No Do you have trouble paying your heating and electricity bill?: No Do you have trouble taking care of your child, family member or friend?: No Do you have trouble with day-to-day activities such as bathing, preparing meals, shopping, managing finances, etc.?: No Are you currently unemployed and looking for a job?: No Are you interested in more education?: No Please select the resources that you would like help with: None Currently or been in a relationship where the following occur: No concerns reported THRIVE Score: 0 MARY KAY-7 AMB Questionnaire MARY KAY-7 Date MARY KAY - 7 assessed: 07/17/24 Feeling nervous, anxious, or on edge: 0 = Not at all Not being able to stop or control worryin = Not at all Worrying too much about different things: 0 = Not at all Trouble relaxin = Not at all Being so restless that it is hard to sit still: 0 = Not at all Becoming easily annoyed or irritable: 0 = Not at all Feeling afraid as if something awful might happen: 0 = Not at all Total MARY KAY-7 score (0-4 normal; 5-9 mild; 10-14 moderate; 15-21 severe): 0 Source: Developed by Drs. Lisandro Buckner, Flaca Woods, Benoit Toro and colleagues, with an educational al from [employer]. Review of Systems Const All systems reviewed & are unremarkable except as noted in HPI and below Eyes Reports no additional complaints ENT Reports no additional complaints Card Reports no additional complaints Resp Reports no additional complaints GI Reports no additional complaints Reports no additional complaints Physical exam (Primary Care) Vital Signs: Last Vital Signs Temp 98.4 F 03/28/25 08:52 Pulse 63 03/28/25 08:52 Resp 18 03/28/25 08:52 BP 100/66 03/28/25 08:52 Pulse Ox 97 03/28/25 08:52 Oxygen Delivery Method Room Air 03/28/25 08:52 BMI result Body Mass Index 28.7 Tobacco/Smoking Status: Tobacco use Status Tobacco use date assessed 03/28/25 03/28/25 09:01 Patient Tobacco Use Status Never used Tobacco 03/28/25 08:53 e-Cigarette/Vaping Use Never Used 03/28/25 08:53 PHQ-9: PHQ-9 Score PHQ-9: Total score 0 03/28/25 09:01 Depression Screening Interpretation: Negative Thrive Assessment: Date of Thrive Assessment Date Thrive assessed 07/17/24 03/28/25 08:53 Currently or been in a relationship where the following occur: No concerns reported Const General: no acute distress HENMT Head: Yes normal to inspection Face and sinus: Yes normal facial exam Resp Effort & Inspection: normal respiratory effort Auscultation: clear to auscultation bilaterally Cardio Rhythm: regular rhythm Heart sounds: S1 normal heart sound present and S2 normal heart sound present Coding Level of Care Code Est Pt Level 3 (12702) Diagnoses Afib I48.91 Hallux flexus of right foot M20.21 Assessment & Plan Assessment & Plan (1) Afib: Comment: paroxysmal 12/2020, nl stress test 10/31 and nl echo 02/2021, low [id number] Code(s): I48.91 - Unspecified atrial fibrillation Category: Medical Plan: Continue current medications follow-up with Cardiology (2) Hallux flexus of right foot: Code(s): M20.21 - Hallux rigidus, right foot Category: Medical Plan: Patient is medically clear for surgery Orders: Orders Lipid Panel Today I48.91 - Unspecified atrial fibrillation, Z00.00 - Encounter for general adult medical examination without abnormal findings Comprehensive [place]. Panel Fast Today I48.91 - Unspecified atrial fibrillation, Z00.00 - Encounter for general adult medical examination without abnormal findings Complete Blood Count Auto Diff Today I48.91 - Unspecified atrial fibrillation, Z00.00 - Encounter for general adult medical examination without abnormal findings PSA,Total (Free>4and<10) Today I48.91 - Unspecified atrial fibrillation, Z00.00 - Encounter for general adult medical examination without abnormal findings UA w Microscopic Today I48.91 - Unspecified atrial fibrillation, Z00.00 - Encounter for general adult medical examination without abnormal findings
--- OUTSIDE RECORDS SUMMARY | 2025-03-28 10:14 | XMS_ITS | Clinical Summary ---
Author Organization [facility] Address [address] [place] [address] Care Team Providers Care Hl7 Developer Name Role Phone Pam Santos MD Primary Care Provider [phone] Allergies Active Allergy Reactions Criticality Noted Date [...] Type Department Care Team Description 12/29/2024 Refill [facility] [address] [place] [address] Cristiano Simental MD Eustachian tube [...] Vaccine (1 of 2) 2012 Influenza Vaccine 02/09/2025 COVID-19 Vaccine (1 - 2023-2 5 season) 2025 RSV Vaccine 60 years and old er and Patients (1 - 1-dose 75+ series) 2037 Hepatitis B Vaccines Aged Out No long er eligible based on patient's age to complete this topic Insurance Care Teams Hl7 Developer Relationship Specialty Start Date End Date Pam Santos MD [address] [place] [id number] PCP - General 10/02/24
--- OUTSIDE RECORDS SUMMARY | 2025-03-28 10:14 | XMS_ITS | Encounter Summary ---
Author Organization [facility] Address [address] [place] [address] Care Team Providers Care Rubber Flap Cutter Name Role Phone Pam Santos MD Primary Care Provider [phone] Encounter Details Date Type Department Care Team (Late st Contact Info) Description 09/27/2024 Scanned Document [facility] [place] [address] [facility], [place] [address] Cristiano Simental MD [address] [place] [phone] Social History Tobacco Use Types Packs/Day Years [...] on filedocumented in this encounter Care Teams Rubber Flap Cutter Relationship Specialty Start Date End Date Pam Santos MD [address] [place] [address] PCP - General 10/02/24 documented as of this encounter
== END 2025-03-28 09:38 | disposition home or self-care (01) ==
LOC: HO.HMCC 08:49
PROVIDERS: PCP Internal Medicine; Visit Provider Internal Medicine
DX: I48.91 Unspecified atrial fibrillation (principal); M20.21 Hallux rigidus, right foot

== ENCOUNTER 2025-03-31 08:45 | Outpatient (REF) | payer OTHER, SELFPAY ==
--- OUTSIDE RECORDS SUMMARY | 2025-03-31 08:48 | XMS_ITS | Encounter Summary ---
Author Organization [facility] Address [address] [place] [address] Care Team Providers Care Professor Of Oceanography Name Role Phone Pam Santos MD Primary Care Provider [phone] Encounter Details Date Type Department Care Team (Late st Contact Info) Description 09/27/2024 Scanned Document [facility] [place] [address] [facility], [place] [address] Cristiano Simental MD [address] [place] [phone] Social History Tobacco Use Types Packs/Day Years [...] on filedocumented in this encounter Care Teams Professor Of Oceanography Relationship Specialty Start Date End Date Pam Santos MD [address] [place] [address] PCP - General 10/02/24 documented as of this encounter
--- OUTSIDE RECORDS SUMMARY | 2025-03-31 08:48 | XMS_ITS | Clinical Summary ---
Author Organization [facility] Address [address] [place] [address] Care Team Providers Care Thread Laster Name Role Phone Pam Santos MD Primary Care Provider [phone] Allergies Active Allergy Reactions Criticality Noted Date [...] Type Department Care Team Description 12/29/2024 Refill [facility] [address] [place] [address] Cristiano Simental MD Eustachian tube [...] to complete this topic Insurance Care Teams Thread Laster Relationship Specialty Start Date End Date Pam Santos MD [address] [place] [id number] PCP - General 10/02/24
[2025-03-31 11:10] LABS: MANUAL DIFF FLAG NO
[2025-03-31 11:14] LABS: Hematocrit 46.1 % (42.0-52.0); Hemoglobin 15.0 g/dl (14.0-18.0); Imm Gran Abs Auto 0.05 X10*3/uL (0.00-0.03); Imm Gran Pct Auto 0.9 % (0.0-0.4); Lymphocytes Absolute Auto 1.4 X10*3/uL (1.2-4.9); Mean Corpuscular HGB Conc 32.5 g/dl (31.0-36.0); Mean Corpuscular Hemoglobin 28.0 pg (27.0-33.0); Mean Corpuscular Volume 86.2 fL (80.0-98.0); NRBC Abs Auto 0.000 X10*3/uL (0.0-0.012); NRBC Pct Auto 0.0 /100WBC (0.0-0.2); Platelet Count 196 X10*3/uL (160-400); Red Blood Count 5.35 X10*6/uL (4.60-5.80); White Blood Count 5.7 X10*3/uL (4.8-10.8)
[2025-03-31 11:43] LABS: Alanine Aminotransferase 17 U/L (0-40); Albumin Level 4.3 g/dL (3.5-5.0); Alkaline Phosphatase 83 U/L (39-117); Anion Gap 12 (12-20); Aspartate Amino Transferase 24 U/L (5-37); Blood Urea Nitrogen 10 mg/dL (9-16); Calcium 9.2 mg/dL (8.4-10.2); Carbon Dioxide 24 mmol/L (22-29); Chloride 108 mmol/L (96-108); Cholesterol 200 mg/dL (<200); Estimated Glomerular Filt Rate > 60; HDL Cholesterol 45 mg/dL (>40); Potassium 4.6 mmol/L (3.3-5.1); Sodium 139 mmol/L (135-145); Total Protein 6.7 g/dL (6.5-8.0); Triglycerides 59 mg/dL (<150)
[2025-03-31 11:49] LABS: PSA,Total (Free>4and<10) 1.42 ng/mL (0.00-4.00)
[2025-03-31 11:59] LABS: Appearance Urine Clear; Glucose Urine UA Negative (Negative); PH 6.5 (5.0-9.0); Specific Gravity - Urine 1.020 (1.005-1.025)
== END 2025-03-31 08:46 | disposition home or self-care (01) ==
LOC: HO.HMGCLDS 08:45
PROVIDERS: PCP Internal Medicine; Visit Provider Internal Medicine
DX: Z00.00 Encounter for general adult medical examination without abnormal findings (principal); Z12.5 Encounter for screening for malignant neoplasm of prostate; Z13.6 Encounter for screening for cardiovascular disorders; I48.91 Unspecified atrial fibrillation
CPT/HCPCS: 36415; 80053; 80061; 81001; 84153; 85025

== ENCOUNTER 2025-04-06 10:03 | Day surgery (SDC) | payer OTHER, SELFPAY ==
--- OUTSIDE RECORDS SUMMARY | 2025-03-19 15:56 | XMS_ITS | Clinical Summary ---
Author Organization [facility] Address [address] [place] [address] Care Team Providers Care Food Service Substitute Name Role Phone Pam Santos MD Primary Care Provider [phone] Allergies Active Allergy Reactions Criticality Noted Date Comments Penicillins Unknown/Patient and Family Unable to Define Medium 10/02/2024 Medications flecainide (TAMBOCOR) 50 MG tablet 2 tablets by Mouth/Oral Cavity route every 12 hours. 08/24/2024 Active metoPROLOL SUCCINATE (TOPROL-XL) 25 MG 24 hr tablet Take 25 mg by mouth. 07/28/2024 Active vardenafil (LEVITRA) 20 MG tablet Take 20 mg by mouth. 07/17/2024 Active fluticasone (FloNASE) 50 mcg/spray nasal sprayIndication s:Eustachian tube dysfunction, right INSTILL 2 SPRAYS INTO EACH NOSTRIL 2 TIMES A DAY. 48 mL 1 12/29/2024 Active Active Problems No known active problems Encounters Date Type Department Care Team Description 12/29/2024 Refill [facility] [address] [place] [address] Cristiano Simental MD Eustachian tube dysfunction, right from Last 3 Months Social History Tobacco [...] 10/02/2024 9:16 AM EDT Plan of Treatment Health Maintenance Due Date Last Done Comments Hepatitis C Virus Screening 1962 HIV Screening 1975 DTaP/Tdap/Td Vaccines (1 - Tdap) 1981 Colonoscopy 2007 Pneumococcal Vaccines 50+ (1 of 1 - PCV) 2012 Zoster (Shingles) Vaccine (1 of 2) 2012 COVID-19 Vaccine ( - 2023-2 5 season) 2024 Influenza Vaccine 02/09/2025 RSV Vaccine 60 years and old er and Patients (1 - 1-dose 75+ series) 2037 Hepatitis B Vaccines Aged Out No long er eligible based on patient's age to complete this topic Insurance Care Teams Food Service Substitute Relationship Specialty Start Date End Date Pam Santos MD [address] [place] [phone] PCP - General 10/02/24
--- OUTSIDE RECORDS SUMMARY | 2025-03-19 15:56 | XMS_ITS | Encounter Summary ---
Author Organization [facility] Address [address] [place] [address] Care Team Providers Care Care Rep Name Role Phone Pam Santos MD Primary Care Provider [phone] Encounter Details Date Type Department Care Team (Late st Contact Info) Description 09/27/2024 Scanned Document [facility] [place] [address] [facility], [place] [address] Cristiano Simental MD [address] [place] [phone] Social History Tobacco Use Types Packs/Day Years [...] on filedocumented in this encounter Care Teams Care Rep Relationship Specialty Start Date End Date Pam Santos MD [address] [place] [address] PCP - General 10/02/24 documented as of this encounter
--- NOTE | 2025-04-04 10:09 | HO.ANESPROP2 ---
Documented by User: Esperanza Leon NP 04/04/25 10:14 HPI - Anesthesia Eval Consult details Narrative: 65 yr old male for RIGHT 1st Metatarsal Fusion, RIGHT Hammertoe Repair Atrial fibrillation: controlled on flecainide & metoprolol; no anti-coagulation due to low [id number] score Follows with [facility] [place] cardiology, last visit 03/05/25, exam was unremarkable, pt asymptomatic, discussed possible ablation in future. Medically optimized by PCP at 03/2025 preop visit. [facility] Active Problems Active Problems: All Active Problems Hallux flexus of right foot (Acute) Tinnitus (Acute) Scalp cyst (Acute) Shortness of breath (Acute) Hypersomnia (Acute) Palpitation (Acute) Cough (Acute) URI (upper respiratory infection) (Acute) Confusion (Acute) Left inguinal hernia (Acute) WYMAN (dyspnea on exertion) (Acute) Colonoscopy refused (Acute) Cataract (Acute) Subcutaneous mass of back (Acute) Afib (Acute) Annual physical exam (Acute) Past Medical History Medical History Subcutaneous mass of back Afib Annual physical exam Family History Family History Father No problems noted. Mother No problems noted. Surgical History Surgical History History of removal of cyst (~08/14/24) History of left inguinal hernia repair (~12/04/22) History of cataract surgery History of excision of mass (~2020) S/P appendectomy History of Problems with Anesthesia: No Social History Social History Household Members: Spouse Housing: House Are you a primary manager care management to a significant other at home: No Do you presently have visiting nurse or other home services: No Alcohol intake: current Alcohol intake frequency: a few times a month Alcohol type: beer Patient Tobacco Use Status: Never used Tobacco e-Cigarette/Vaping Use: Never Used Second Hand Smoke Exposure: No service: Yes Current occupational status: employed 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 The calculated ejection fraction is 61% by biplane method. - No obvious valvular pathology seen on this study. - There is mild dilatation of the ascending aorta measuring 4.30 cm. Assessment and Plan Final Anesthetic Review History of Problems with Anesthesia: No Documented by User: Jacky Madera MD 04/06/25 11:11 [facility] Past Medical History Medical History Subcutaneous mass of back Afib Annual physical exam Family History Family History Father No problems noted. Mother No problems noted. Family history of problems with anesthesia: No Surgical History Surgical History History of removal of cyst (~08/14/24) History of left inguinal hernia repair (~12/04/22) History of cataract surgery History of excision of mass (~2020) S/P appendectomy Social History Social History Household Members: Spouse Housing: House Are you a primary manager care management to a significant other at home: No Do you presently have visiting nurse or other home services: No Alcohol intake: current Alcohol intake frequency: a few times a month Alcohol type: beer Patient Tobacco Use Status: Never used Tobacco e-Cigarette/Vaping Use: Never Used Second Hand Smoke Exposure: No service: Yes Current occupational status: employed 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 Cognitive needs: No Hearing needs: No Vision needs: Yes Meds Allergies Allergy/AdvReac Type Severity Reaction Status Date / Time Penicillins (PCN) Allergy Unknown HIVES Verified 03/28/25 08:52 Exam Airway Mallampati Class: III TM Dist: >3cm Neck ROM: Full Heart: RRR Lungs: CTAB Assessment and Plan Assessment Anesthesia Assessment: Anesthesia Plan Discussed and Chart Reviewed Final Anesthetic Review Family History of Problems with Anesthesia: No NPO: Yes ASA Class: II Final Preanesthetic Review: No Changes in Pt Med Stat, Meds/Allgs Chart Reviewed, Consent Obtained/Reviewed and Anes Risks/Benef Reviewed Patient Risk: Intermediate Procedure Risk: Low Anesthetic Plan Anesthetic Plan: GA Disposition: Standard PACU
[2025-04-04 12:03] VITALS: BMI 28.7
[2025-04-06] VITALS (8 sets, daily range): BP systolic 102–127; BP diastolic 41–75; PULSE 50–64; RESP 10–18; TEMP 36.3–36.6; O2SAT 89–99; BMI 28.3
--- NOTE | ~2025-04-06 | FL_ITS ---
EXAMINATION: XR FLUOROSCOPY WITH IMAGES CLINICAL INFORMATION: Fusion of second and third toes. COMPARISON: None available. TECHNIQUE: Fluoroscopy provided to: Dr. Jacome Fluoroscopy time: 9 seconds DAP: 0.0117 Gycm2 Images: 1 FINDINGS: Solitary fluoroscopic spot image obtained during fusion of the right second and third toes. Please refer to the full operative report for details. FL/FL guidance in OR IMPRESSION: Fluoroscopic guidance. Electronically signed by: Froylan An MD 04/12/2025 08:29 AM EDT
--- NOTE | 2025-04-06 08:30 | P.HPOP_ITS ---
History of Present Illness History of Present Illness Date of Service: 04/06/25 Chief complaint: Hallux valgus (acquired), right foot,HAMMER TOE Narrative: Benoit Dailey is a 65 year old male [facility] Past Medical History Medical History Subcutaneous mass of back Afib Annual physical exam Family History Family History Father No problems noted. Mother No problems noted. Surgical History Surgical History History of removal of cyst (~08/14/24) History of left inguinal hernia repair (~12/04/22) History of cataract surgery History of excision of mass (~2020) S/P appendectomy Social History Social History Household Members: Spouse Housing: House Are you a primary health care consultant to a significant other at home: No Do you presently have visiting nurse or other home services: No Alcohol intake: current Alcohol intake frequency: a few times a month Alcohol type: beer Patient Tobacco Use Status: Never used Tobacco e-Cigarette/Vaping Use: Never Used Second Hand Smoke Exposure: No Use of substances other than those prescribed or required for medical reasons: No Advance Directives: No Advance Directives Information Provided: Yes service: Yes Current occupational status: employed 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 Quality Stroke Does the patient have a stroke diagnosis?: No VTE Prior VTE?: No VTE Risk Level:: Surgical - low VTE Device Contraindication: N/A - Device Ordered VTE Drug Contraindication: N/A - Med Ordered Procedures Date of Service Date of Service: 04/06/25
[2025-04-06] MEDS: Lactated Ringers 1,000 ML 100 ML IVCONT (10:35)
--- NOTE | 2025-04-06 10:50 | P.HPOP_ITS ---
History of Present Illness History of Present Illness Date of Service: 04/06/25 Chief complaint: Hallux valgus (acquired), right foot,HAMMER TOE Narrative: Benoit Dailey is a 65 year old male Review of Systems Review of Systems: Yes all other systems are reviewed and are negative Musculoskeletal: Musculoskeletal: Reports as per HPI (Miltonertoe, bunion right) [facility] Past Medical History Medical History Subcutaneous mass of back Afib Annual physical exam Family History Family History Father No problems noted. Mother No problems noted. Surgical History Surgical History History of removal of cyst (~08/14/24) History of left inguinal hernia repair (~12/04/22) History of cataract surgery History of excision of mass (~2020) S/P appendectomy Social History Social History Household Members: Spouse Housing: House Are you a primary patient care representative to a significant other at home: No Do you presently have visiting nurse or other home services: No Alcohol intake: current Alcohol intake frequency: a few times a month Alcohol type: beer Patient Tobacco Use Status: Never used Tobacco e-Cigarette/Vaping Use: Never Used Second Hand Smoke Exposure: No Use of substances other than those prescribed or required for medical reasons: No Advance Directives: No Advance Directives Information Provided: Yes service: Yes Current occupational status: employed 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 Cognitive needs: No Hearing needs: No Vision needs: Yes Meds Allergies Allergy/AdvReac Type Severity Reaction Status Date / Time Penicillins (PCN) Allergy Unknown HIVES Verified 03/28/25 08:52 Active Medications: Current Medications Albuterol Sulfate (Albuterol Sulfate (0.083%) 2.5 Mg/3 Ml Vial.Neb) 2.5 mg INHALE ONCE PRN PRN Reason: Shortness of Breath/Wheezing Lactated Ringer's (Lr) 1,000 mls @ 100 mls/hr IVCONT .Q10H KODI Last Admin: 04/06/25 10:35 Dose: 100 mls/hr Physical Exam Vital Signs: Vital Signs: Last Vital Signs Temp 97.7 F 04/06/25 10:35 Pulse 50 04/06/25 10:35 Resp 16 04/06/25 10:35 BP 127/75 04/06/25 10:35 Pulse Ox 98 04/06/25 10:35 O2 Del Method Room Air 04/06/25 10:35 BMI result Body Mass Index 28.3 Extrem: Right lower extremity: normal capillary refill and foot Details: abnormal ROM of toe (limited first MPJ range of motion) Results Labs Labs: All other labs normal. Quality Stroke Does the patient have a stroke diagnosis?: No VTE Prior VTE?: No VTE Risk Level:: Surgical - low VTE Device Contraindication: N/A - Device Ordered VTE Drug Contraindication: N/A - Med Ordered Procedures Date of Service Date of Service: 04/06/25
--- NOTE | 2025-04-06 13:46 | W.PM.OPN ---
Operative Note Operative Note Date of Service: 04/06/25 Narrative: Attention was directed to the right? hallux, where a significant hallux valgus deformity was appreciated. An incision was made over the first metatarsophalangeal joint just medial to the extensor hallucis longus tendon.? The incision was deepened through subcutaneous tissue with care to identify and retract all vital neurovascular structures.? Any bleeders were cauterized as necessary.? With the extensor tendon retracted laterally, a capsular incision was made over the first metatarsophalangeal joint.? The capsular and periosteal structures were reflected medially and laterally, exposing the first metatarsophalangeal joint. A standard lateral release was performed. Next all cartilage was resected off the head of the first metatarsal and base of the proximal phalanx using a rotary china. Subchondral drilling was performed with 2.0 mm drill. The first MPJ was then manually manipulated into appropriate corrected position. A guidewire was driven across the joint for temporary fixation.? Next following first breaker feeder guidelines, the crossroads plate was placed over the joint and temporarily fixated. Intraoperative fluoroscopy confirmed excellent positioning of the hardware. Using standard AO technique, the plate was filled with appropriately sized 3.0 mm screws.? The staple guide was placed over the first metatarsophalangeal joint and then drilling was performed.? A Crossroads staple was then inserted over the first metatarsophalangeal joint and tamped flush down to the level of bone.? Proper positioning of the staple was confirmed via fluoroscopy.? A stable construct was noted to the first metatarsophalangeal joint with the hallux noted to sit in rectus and corrected position.The surgical site was then irrigated with sterile saline.? Capsular structures reapproximated using 3-0 Vicryl.? The subcuticular tissues were reapproximated using 4-0 Vicryl.? The skin edges were reapproximated using 3-0 nylon in interrupted horizontal mattress suture technique. Next attention was directed to the third digit where a rigid hammertoe deformity was noted.? An incision was made overlying the proximal IPJ and carried through subcutaneous tissue with care to identify and retract all vital neurovascular structures.? A transverse tenotomy was performed at the level of the proximal interphalangeal joint, and the collateral ligaments were sharply excised thus exposing the proximal IP join to the operative field. The head of the proximal phalanx was then sharply resected and passed off the field.? Next, a 0.61 guidewire was driven anterograde fashion through the intermediate and distal phalanges, exiting the distal aspect of the toe, and retrograded back into the proximal phalanx and metatarsal head with the toe held in a rectus position.? Clinically, the toe was noted to be rectus, and this was confirmed fluoroscopically. The tourniquet was then deflated for a total tourniquet time of 76 minutes. CFT to the second digit was noted to be sluggish thus intraoperative decision was made to remove K-wire from second digit. After the K wire was removed CFT was brisk to the second digit. Subcutaneous tissue was approximated with 3-0 vicryl. Subcuticular tissue was approximated with 4-0 vicryl. The skin was approximated with 4-0 nylon. Patient tolerated procedure and anesthesia well. After a period of post operative monitoring he will be discharged home with oral and written instructions.
--- NOTE | 2025-04-06 16:52 | PM.OP ---
Brief Operative Note Date of Service: 04/06/25 Pre-op diagnosis: Hallux rigidus, right foot Hammertoe deformity, right second digit Hammertoe deformity, right third digit Procedure: 1st MPJ fusion, right Correction of hammertoe, right second digit Correction of hammertoe, right third digit Implants: Crossroads 1st MPJ fusion plate, 4 3.0mm screws 14 x18 mm crossroads staple 0.061 Inch K wire x1 Surgeon: Erika Jacome DPM Anesthesia: GLMA Was an Health Safety Manager used for this Procedure?: Yes Health Safety Manager: Anjali Rothman Estimated blood loss (mL): 10 Tourniquet time (min): 76 Pathology: none sent Condition: stable Disposition: PACU
--- NOTE | 2025-04-06 16:56 | P.OP_ITS ---
Operative Note Operative Note Date of Service: 04/06/25 Narrative: Attention was directed to the right? hallux, where a significant hallux valgus deformity was appreciated. An incision was made over the first metatarsophalangeal joint just medial to the extensor hallucis longus tendon.? The incision was deepened through subcutaneous tissue with care to identify and retract all vital neurovascular structures.? Any bleeders were cauterized as necessary.? With the extensor tendon retracted laterally, a capsular incision was made over the first metatarsophalangeal joint.? The capsular and periosteal structures were reflected medially and laterally, exposing the first metatarsophalangeal joint. A standard lateral release was performed. Next all cartilage was resected off the head of the first metatarsal and base of the proximal phalanx using a rotary china. Subchondral drilling was performed with 2.0 mm drill. The first MPJ was then manually manipulated into appropriate corrected position. A guidewire was driven across the joint for temporary fixation.? Next following enterprise solutions architect guidelines, the crossroads plate was placed over the joint and temporarily fixated. Intraoperative fluoroscopy confirmed excellent positioning of the hardware. Using standard AO technique, the plate was filled with appropriately sized 3.0 mm screws.? The staple guide was placed over the first metatarsophalangeal joint and then drilling was performed.? A Crossroads staple was then inserted over the first metatarsophalangeal joint and tamped flush down to the level of bone.? Proper positioning of the staple was confirmed via fluoroscopy.? A stable construct was noted to the first metatarsophalangeal joint with the hallux noted to sit in rectus and corrected position.The surgical site was then irrigated with sterile saline.? Capsular structures reapproximated using 3-0 Vicryl.? The subcuticular tissues were reapproximated using 4-0 Vicryl.? The skin edges were reapproximated using 3-0 nylon in interrupted horizontal mattress suture technique. ? Next attention was directed to the second digit where a rigid crossover hammertoe deformity was noted.? An incision was made overlying the proximal IPJ and carried through subcutaneous tissue with care to identify and retract all vital neurovascular structures.? A transverse tenotomy was performed at the level of the proximal interphalangeal joint, and the collateral ligaments were sharply excised thus exposing the proximal IP join to the operative field. The head of the proximal phalanx was then sharply resected and passed off the field.? Next, a 0.61 guidewire was driven anterograde fashion through the intermediate and distal phalanges, exiting the distal aspect of the toe, and retrograded back into the proximal phalanx and metatarsal head with the toe held in a rectus position.? Clinically, the toe was noted to be rectus, and this was confirmed fluoroscopically. Next attention was directed to the third digit where a rigid hammertoe deformity was noted.? An incision was made overlying the proximal IPJ and carried through subcutaneous tissue with care to identify and retract all vital neurovascular structures.? A transverse tenotomy was performed at the level of the proximal interphalangeal joint, and the collateral ligaments were sharply excised thus exposing the proximal IP join to the operative field. The head of the proximal phalanx was then sharply resected and passed off the field.? Next, a 0.61 guidewire was driven anterograde fashion through the intermediate and distal phalanges, exiting the distal aspect of the toe, and retrograded back into the proximal phalanx and metatarsal head with the toe held in a rectus position.? Clinically, the toe was noted to be rectus, and this was confirmed fluoroscopically. The tourniquet was then deflated for a total tourniquet time of 76 minutes. CFT to the second digit was noted to be sluggish thus intraoperative decision was made to remove K-wire from second digit. After the K wire was removed CFT was brisk to the second digit. Subcutaneous tissue was approximated with 3-0 vicryl. Subcuticular tissue was approximated with 4-0 vicryl. The skin was approximated with 4-0 nylon.
== END 2025-04-06 15:15 | disposition home or self-care (01) ==
PROVIDERS: PCP Internal Medicine; Visit Provider Student in an Organized Health Care Education/Training Program
PROC: (CPT 28735; principal; 2025-04-06 11:30)
PROC: (CPT 28285; 2025-04-06 11:30)
DX: M20.11 Hallux valgus (acquired), right foot (principal); M20.41 Other hammer toe(s) (acquired), right foot; I48.91 Unspecified atrial fibrillation; Z98.890 Other specified postprocedural states
CPT/HCPCS: 28750; 28285 ×2; 99221; C1713; J0461; J0736; J1100; J1171; J1596; J2003; J2250; J2405; J2704; J2795; J3010